=== PATIENT | male | born 1965 | race Two or more races ===

== ENCOUNTER 2020-10-26 22:04 | Emergency (ER) | payer OTHER ==
[~2020-10-26] VITALS: Ht 170.2 cm; Wt 99.8 kg
[2020-10-26 23:25] LABS: Albumin 2.6 g/dL (3.4-5.0); BUN/Creatinine Ratio 9.4; Calcium 8.4 mg/dL (8.5-10.1); Potassium 3.9 mmol/L (3.5-5.1)
[2020-10-26 23:28] LABS: Bilirubin, Total 0.4 mg/dL (0.2-1.0); Total Protein 7.4 g/dL (6.4-8.2)
[2020-10-26 23:37] LABS: Basophils # (auto) 0.1 10 ^3/uL (0-0.2); Basophils % (auto) 0.8 % (0.0-2.0); Eosinophils # (auto) 0.5 10 ^3/uL (0-0.8); Eosinophils % (auto) 4.5 % (0.0-7.0); Hematocrit 34.4 % (41.0-53.0); Hemoglobin 12.2 g/dL (13.5-17.5); Lymphocytes # (auto) 1.7 10 ^3/uL (0.4-5.4); Lymphocytes % (auto) 16.8 % (10.0-50.0); Mean Corpuscular Hgb Conc. 35.5 g/dL (32.0-36.0); Mean Corpuscular Volume 90.1 fL (80.0-100.0); Monocytes % (auto) 9.9 % (0.0-12.0); Nucleated Red Blood Cells % 0.1 %; Red Blood Cells 3.82 10^6/uL (4.5-5.90); Red Cell Distribution Width 13.1 % (11.8-14.3); White Blood Cell 10.3 10^3/uL (4.4-10.8)
[2020-10-27] MEDS ORDERED: diazePAM 5 MG TAB PO ONE (02:00)
[2020-10-27] MEDS ORDERED: ACETAMINOPHEN 325 MG TAB PO ONE (02:00)
[2020-10-27 04:00] VITALS: BP 141/75
== END 2020-10-27 05:53 | disposition left against medical advice (07) ==
LOC: ER 22:04
DX: N17.8 Other acute kidney failure (principal); R51.9 Headache, unspecified; I10 Essential (primary) hypertension; E11.9 Type 2 diabetes mellitus without complications; F17.210 Nicotine dependence, cigarettes, uncomplicated; Z90.49 Acquired absence of other specified parts of digestive tract; Z98.890 Other specified postprocedural states
CPT/HCPCS: 36415; 70450; 80053; 85025; 85049

== ENCOUNTER 2021-11-07 19:07 | Emergency (ER) | payer MEDICAID, OTHER ==
[~2021-11-07] VITALS: Ht 170.2 cm; Wt 83.9 kg
[2021-11-07 20:00] VITALS: BP 149/93
[2021-11-07 21:10] LABS: Basophils # (auto) 0.1 10 ^3/uL (0-0.2); Basophils % (auto) 1.7 % (0.0-2.0); Eosinophils # (auto) 0.1 10 ^3/uL (0-0.8); Hematocrit 30.3 % (41.0-53.0); Hemoglobin 10.4 g/dL (13.5-17.5); Lymphocytes # (auto) 0.7 10 ^3/uL (0.4-5.4); Lymphocytes % (auto) 13.9 % (10.0-50.0); Mean Corpuscular Hemoglobin 32.3 pg (28.0-32.0); Mean Corpuscular Hgb Conc. 34.5 g/dL (32.0-36.0); Mean Corpuscular Volume 93.7 fL (80.0-100.0); Monocytes # (auto) 0.7 10 ^3/uL (0-1.3); Monocytes % (auto) 12.6 % (0.0-12.0); Neutrophils # (auto) 3.7 10 ^3/uL (1.6-8.6); Neutrophils % (auto) 70.8 % (37.0-80.0); Red Blood Cells 3.23 10^6/uL (4.5-5.90); Red Cell Distribution Width 14.2 % (11.8-14.3); White Blood Cell 5.3 10^3/uL (4.4-10.8)
[2021-11-07 21:28] LABS: Albumin 3.7 g/dL (3.4-5.0); Calcium 9.1 mg/dL (8.5-10.1); Potassium 3.9 mmol/L (3.5-5.1)
[2021-11-07 21:32] LABS: BUN/Creatinine Ratio 4.4; Bilirubin, Total 0.4 mg/dL (0.2-1.0); Total Protein 7.8 g/dL (6.4-8.2)
[2021-11-07 23:13] LABS: Basophils # (auto) 0 10 ^3/uL (0-0.2); Basophils % (auto) 0.9 % (0.0-2.0); Eosinophils # (auto) 0 10 ^3/uL (0-0.8); Eosinophils % (auto) 0.9 % (0.0-7.0); Hematocrit 28.3 % (41.0-53.0); Hemoglobin 10.1 g/dL (13.5-17.5); Lymphocytes % (auto) 20.3 % (10.0-50.0); Mean Corpuscular Hemoglobin 33.7 pg (28.0-32.0); Mean Corpuscular Hgb Conc. 35.6 g/dL (32.0-36.0); Mean Corpuscular Volume 94.4 fL (80.0-100.0); Monocytes # (auto) 0.6 10 ^3/uL (0-1.3); Monocytes % (auto) 12.7 % (0.0-12.0); Neutrophils # (auto) 3.1 10 ^3/uL (1.6-8.6); Neutrophils % (auto) 65.2 % (37.0-80.0); Nucleated Red Blood Cells % 0.1 %; Red Cell Distribution Width 14.7 % (11.8-14.3); White Blood Cell 4.7 10^3/uL (4.4-10.8)
[2021-11-07 23:25] LABS: Albumin 3.7 g/dL (3.4-5.0); Anion Gap 9 (5-15); Blood Urea Nitrogen 38 mg/dL (7-18); Calcium 9.4 mg/dL (8.5-10.1); Carbon Dioxide 32 mmol/L (21-32); Chloride 94 mmol/L (98-107); Glucose 97 mg/dL (74-106); Sodium 135 mmol/L (136-145)
[2021-11-07 23:28] LABS: Alanine Aminotransferase 8 U/L (16-61); Aspartate Aminotransferase < 3 U/L (15-37); BUN/Creatinine Ratio 4.6; GFR African American 9 mL/min; GFR Non-African American 7 mL/min
[2021-11-07 23:31] LABS: Alkaline Phosphatase 68 U/L (45-117); Bilirubin, Total 0.4 mg/dL (0.2-1.0); Total Protein 7.4 g/dL (6.4-8.2)
== END 2021-11-08 01:38 | disposition home or self-care (01) ==
LOC: ER 19:07
DX: E11.22 Type 2 diabetes mellitus with diabetic chronic kidney disease (principal); R39.9 Unspecified symptoms and signs involving the genitourinary system; I12.0 Hypertensive chronic kidney disease with stage 5 chronic kidney disease or end stage renal disease; N18.6 End stage renal disease; F17.210 Nicotine dependence, cigarettes, uncomplicated; Z90.49 Acquired absence of other specified parts of digestive tract
CPT/HCPCS: 36415; 71045; 74176; 80053; 85025

== ENCOUNTER 2021-11-25 14:29 | Emergency (ER) | payer MEDICAID ==
[~2021-11-25] VITALS: Ht 167.6 cm; Wt 90.0 kg
[2021-11-25] MEDS ORDERED: cloNIDine HCL 0.1 MG TAB PO ONE (15:00)
[2021-11-25 15:38] LABS: Basophils # (auto) 0.1 10 ^3/uL (0-0.2); Basophils % (auto) 1.1 % (0.0-2.0); Eosinophils # (auto) 0.2 10 ^3/uL (0-0.8); Eosinophils % (auto) 2.4 % (0.0-7.0); Hematocrit 34.6 % (41.0-53.0); Hemoglobin 12.1 g/dL (13.5-17.5); Lymphocytes # (auto) 0.7 10 ^3/uL (0.4-5.4); Lymphocytes % (auto) 7.9 % (10.0-50.0); Mean Corpuscular Hemoglobin 33.1 pg (28.0-32.0); Mean Corpuscular Hgb Conc. 34.9 g/dL (32.0-36.0); Mean Corpuscular Volume 94.9 fL (80.0-100.0); Monocytes # (auto) 0.7 10 ^3/uL (0-1.3); Monocytes % (auto) 7.9 % (0.0-12.0); Neutrophils # (auto) 6.9 10 ^3/uL (1.6-8.6); Neutrophils % (auto) 80.7 % (37.0-80.0); Red Blood Cells 3.65 10^6/uL (4.5-5.90); White Blood Cell 8.6 10^3/uL (4.4-10.8)
[2021-11-25 15:56] LABS: Albumin 4.1 g/dL (3.4-5.0); BUN/Creatinine Ratio 3.7; Calcium 10.3 mg/dL (8.5-10.1); Potassium 4.2 mmol/L (3.5-5.1)
[2021-11-25 15:59] LABS: Bilirubin, Total 0.5 mg/dL (0.2-1.0); Total Protein 7.8 g/dL (6.4-8.2)
[2021-11-25] MEDS ORDERED: ONDANSETRON ODT 4 MG TAB PO ONE (22:45)
[2021-11-25 22:50] VITALS: BP 224/102
== END 2021-11-26 00:01 | disposition home or self-care (01) ==
LOC: ER 14:29
DX: R42 Dizziness and giddiness (principal); R53.1 Weakness; I16.0 Hypertensive urgency; I12.0 Hypertensive chronic kidney disease with stage 5 chronic kidney disease or end stage renal disease; E11.22 Type 2 diabetes mellitus with diabetic chronic kidney disease; N18.6 End stage renal disease; F17.210 Nicotine dependence, cigarettes, uncomplicated; Z99.2 Dependence on renal dialysis; Z90.49 Acquired absence of other specified parts of digestive tract; Z20.822 Contact with and (suspected) exposure to COVID-19
CPT/HCPCS: 36415; 70450; 71046; 80053; 82728; 85025; 86141; 87426; 93005; 99285; Q0162

== ENCOUNTER 2021-12-24 19:12 | Inpatient (IN) | payer MEDICAID ==
[~2021-12-24] VITALS: Ht 175.3 cm; Wt 73.2 kg
[2021-12-24] MEDS ORDERED: cloNIDine HCL 0.1 MG TAB PO ONE (20:15)
[2021-12-24 20:56] LABS: Basophils # (auto) 0.1 10 ^3/uL (0-0.2); Basophils % (auto) 0.8 % (0.0-2.0); Eosinophils # (auto) 0.1 10 ^3/uL (0-0.8); Eosinophils % (auto) 0.9 % (0.0-7.0); Hemoglobin 12.5 g/dL (13.5-17.5); Lymphocytes # (auto) 0.7 10 ^3/uL (0.4-5.4); Mean Corpuscular Hemoglobin 32.6 pg (28.0-32.0); Mean Corpuscular Hgb Conc. 33.9 g/dL (32.0-36.0); Monocytes # (auto) 0.6 10 ^3/uL (0-1.3); Monocytes % (auto) 8.5 % (0.0-12.0); Neutrophils # (auto) 5.3 10 ^3/uL (1.6-8.6); Neutrophils % (auto) 79.8 % (37.0-80.0); Nucleated Red Blood Cells % 0.1 %; Red Blood Cells 3.85 10^6/uL (4.5-5.90); Red Cell Distribution Width 13.7 % (11.8-14.3); White Blood Cell 6.7 10^3/uL (4.4-10.8)
[2021-12-24 21:07] LABS: Albumin 3.8 g/dL (3.4-5.0); Calcium 10.1 mg/dL (8.5-10.1); Potassium 3.7 mmol/L (3.5-5.1)
[2021-12-24 21:11] LABS: BUN/Creatinine Ratio 4.8; Bilirubin, Total 0.6 mg/dL (0.2-1.0); Total Protein 7.2 g/dL (6.4-8.2)
[2021-12-25] VITALS (43 sets, daily range): BP systolic 121–147; BP diastolic 56–71
[2021-12-25 02:35] LABS: Urine Bacteria FEW /hpf (None Seen); Urine Blood Negative /uL (Negative); Urine Specific Gravity 1.005 (1.001-1.035); Urine WBC <1 /hpf (0 - 3)
[2021-12-25] MEDS ORDERED: DEXTROSE (50%) 50ML SYRG IV PRN (04:00)
[2021-12-25] MEDS ORDERED: ONDANSETRON HCL 4 MG/2 ML VIAL IV PRN (04:00)
[2021-12-25] MEDS ORDERED: HYDROcodone-ACET 5/325MG TAB PO PRN (04:00)
[2021-12-25] MEDS ORDERED: MORPHINE SULFATE INJ 2 MG/ml SYRG IV PRN (04:00)
[2021-12-25] MEDS ORDERED: NITROGLYCERIN 0.4 MG SL TAB SL PRN (04:00)
[2021-12-25] MEDS ORDERED: AMLO-489 PO (04:02)
[2021-12-25] MEDS ORDERED: CARV12.544 PO (04:02)
[2021-12-25] MEDS ORDERED: DOXA4TAB6 PO (04:02)
[2021-12-25] MEDS ORDERED: HYDR50TA15 PO (04:02)
[2021-12-25] MEDS: InsuLIN REG 1unit/0.01ml Soln (100units/ml) SC SCH ×4 (06:00→23:36)
[2021-12-25] MEDS: ACCU-CHEK COMFORT CURVE STRIP VI SCH ×4 (06:00→23:36)
[2021-12-25] MEDS: hydrALAZINE HCL 25 MG TAB PO SCH ×3 (07:08→22:50)
[2021-12-25] MEDS: SEVELAMER 800 MG TAB PO SCH ×3 (08:00→17:06)
[2021-12-25] MEDS: CARVEDILOL 12.5 MG TAB PO SCH ×2 (10:00→22:50)
[2021-12-25] MEDS: amLODIPine BESYLATE 5 MG TAB PO SCH (10:00)
[2021-12-25] MEDS: PANTOPRAZOLE 40 MG/10 ML VIAL INJ IV SCH (12:27)
[2021-12-26] VITALS (78 sets, daily range): BP systolic 130–205; BP diastolic 69–105
[2021-12-26] MEDS: hydrALAZINE HCL 20 MG/ML VL IV PRN ×2 (02:04→10:17)
[2021-12-26 03:42] LABS: Basophils # (auto) 0.1 10 ^3/uL (0-0.2); Basophils % (auto) 0.9 % (0.0-2.0); Eosinophils # (auto) 0 10 ^3/uL (0-0.8); Eosinophils % (auto) 0.3 % (0.0-7.0); Hematocrit 36.1 % (41.0-53.0); Hemoglobin 12.5 g/dL (13.5-17.5); Lymphocytes # (auto) 0.9 10 ^3/uL (0.4-5.4); Lymphocytes % (auto) 10.7 % (10.0-50.0); Mean Corpuscular Hemoglobin 33.1 pg (28.0-32.0); Mean Corpuscular Hgb Conc. 34.6 g/dL (32.0-36.0); Mean Corpuscular Volume 95.7 fL (80.0-100.0); Monocytes # (auto) 0.5 10 ^3/uL (0-1.3); Monocytes % (auto) 6.4 % (0.0-12.0); Neutrophils # (auto) 6.9 10 ^3/uL (1.6-8.6); Neutrophils % (auto) 81.7 % (37.0-80.0); Red Blood Cells 3.77 10^6/uL (4.5-5.90); Red Cell Distribution Width 14.4 % (11.8-14.3); White Blood Cell 8.4 10^3/uL (4.4-10.8)
[2021-12-26 04:07] LABS: % Iron Saturation 35.6 % (20-55)
[2021-12-26 04:15] LABS: Potassium 3.8 mmol/L (3.5-5.1)
[2021-12-26 04:24] LABS: Albumin 3.2 g/dL (3.4-5.0); BUN/Creatinine Ratio 5.7; Bilirubin, Total 0.5 mg/dL (0.2-1.0); Calcium 9.2 mg/dL (8.5-10.1); Total Protein 6.4 g/dL (6.4-8.2)
[2021-12-26] MEDS: ACCU-CHEK COMFORT CURVE STRIP VI SCH ×3 (05:35→18:43)
[2021-12-26] MEDS: InsuLIN REG 1unit/0.01ml Soln (100units/ml) SC SCH ×3 (05:35→18:00)
[2021-12-26] MEDS: hydrALAZINE HCL 25 MG TAB PO SCH ×3 (05:42→20:56)
[2021-12-26] MEDS ORDERED: SODIUM CHL 0.9% 1000 ML BAG XX ONE (07:00)
[2021-12-26] MEDS: SEVELAMER 800 MG TAB PO SCH ×3 (08:00→17:19)
[2021-12-26] MEDS: PANTOPRAZOLE 40 MG/10 ML VIAL INJ IV SCH ×2 (09:41→21:11)
[2021-12-26] MEDS: CARVEDILOL 12.5 MG TAB PO SCH ×2 (10:00→20:56)
[2021-12-26] MEDS: amLODIPine BESYLATE 5 MG TAB PO SCH (10:00)
[2021-12-26] MEDS: PIPERACILLIN-TAZOB 2.25GM 50 ML IV SCH ×2 (10:17→21:11)
[2021-12-26 12:30] LABS: Alcohol, Urine < 3.0 mg/dL (0-10); Amphetamine Screen, Urine NEGATIVE (NEGATIVE); Barbiturate Scree,Urine NEGATIVE (NEGATIVE); Benzodiazephine Screen, Urine NEGATIVE (NEGATIVE); Cannabinoid Screen, Urine NEGATIVE (NEGATIVE); Cocaine Screen, Urine NEGATIVE (NEGATIVE); Opiate Scree,Urine NEGATIVE (NEGATIVE); Phencyclidine Screen, Urine NEGATIVE (NEGATIVE)
[2021-12-26] MEDS ORDERED: MORPHINE SULFATE INJ 2 MG/ml SYRG IV PRN (14:30)
[2021-12-26] MEDS: SULFACETAMIDE SOD 10% OPTH(EYE) SOL 15ML EACHEYE SCH ×3 (16:07→21:11)
[2021-12-26] MEDS: ACETAMINOPHEN 325 MG TAB PO PRN (16:08)
[2021-12-27] VITALS (91 sets, daily range): BP systolic 116–176; BP diastolic 58–87
[2021-12-27] MEDS: SULFACETAMIDE SOD 10% OPTH(EYE) SOL 15ML EACHEYE SCH ×9 (00:05→23:40)
[2021-12-27] MEDS: ACCU-CHEK COMFORT CURVE STRIP VI SCH ×5 (00:05→23:38)
[2021-12-27] MEDS: hydrALAZINE HCL 20 MG/ML VL IV PRN (02:05)
[2021-12-27 03:45] LABS: Basophils # (auto) 0.1 10 ^3/uL (0-0.2); Basophils % (auto) 1.1 % (0.0-2.0); Eosinophils # (auto) 0 10 ^3/uL (0-0.8); Eosinophils % (auto) 0.3 % (0.0-7.0); Hematocrit 36.5 % (41.0-53.0); Hemoglobin 12.5 g/dL (13.5-17.5); Lymphocytes # (auto) 1.5 10 ^3/uL (0.4-5.4); Lymphocytes % (auto) 17.3 % (10.0-50.0); Mean Corpuscular Hemoglobin 33.2 pg (28.0-32.0); Mean Corpuscular Hgb Conc. 34.3 g/dL (32.0-36.0); Mean Corpuscular Volume 96.9 fL (80.0-100.0); Monocytes # (auto) 0.9 10 ^3/uL (0-1.3); Monocytes % (auto) 10.4 % (0.0-12.0); Neutrophils # (auto) 6.1 10 ^3/uL (1.6-8.6); Neutrophils % (auto) 70.9 % (37.0-80.0); Red Blood Cells 3.77 10^6/uL (4.5-5.90); Red Cell Distribution Width 14.3 % (11.8-14.3); White Blood Cell 8.6 10^3/uL (4.4-10.8)
[2021-12-27 04:09] LABS: BUN/Creatinine Ratio 5.4; Calcium 9.5 mg/dL (8.5-10.1); Potassium 3.6 mmol/L (3.5-5.1)
[2021-12-27] MEDS: InsuLIN REG 1unit/0.01ml Soln (100units/ml) SC SCH ×5 (05:47→23:38)
[2021-12-27] MEDS: hydrALAZINE HCL 25 MG TAB PO SCH ×3 (05:47→22:03)
[2021-12-27] MEDS: SEVELAMER 800 MG TAB PO SCH ×3 (08:00→18:00)
[2021-12-27] MEDS ORDERED: LORazepam 2MG/ML-1ML VIAL IV PRN (09:45)
[2021-12-27] MEDS: CARVEDILOL 12.5 MG TAB PO SCH ×2 (11:04→22:02)
[2021-12-27] MEDS: PANTOPRAZOLE 40 MG/10 ML VIAL INJ IV SCH ×2 (11:04→22:02)
[2021-12-27] MEDS: PIPERACILLIN-TAZOB 2.25GM 50 ML IV SCH ×2 (11:04→22:02)
[2021-12-27] MEDS: THIAMINE HCL 100 MG TAB PO SCH (11:04)
[2021-12-27] MEDS: amLODIPine BESYLATE 5 MG TAB PO SCH (11:05)
[2021-12-28] VITALS (92 sets, daily range): BP systolic 106–182; BP diastolic 67–136
[2021-12-28] MEDS: hydrALAZINE HCL 20 MG/ML VL IV PRN ×3 (02:05→18:11)
[2021-12-28 03:33] LABS: Basophils # (auto) 0.1 10 ^3/uL (0-0.2); Basophils % (auto) 1.1 % (0.0-2.0); Eosinophils # (auto) 0.1 10 ^3/uL (0-0.8); Eosinophils % (auto) 0.8 % (0.0-7.0); Hematocrit 34.7 % (41.0-53.0); Lymphocytes # (auto) 1.7 10 ^3/uL (0.4-5.4); Lymphocytes % (auto) 20.2 % (10.0-50.0); Mean Corpuscular Hemoglobin 33.9 pg (28.0-32.0); Mean Corpuscular Hgb Conc. 34.6 g/dL (32.0-36.0); Monocytes # (auto) 0.8 10 ^3/uL (0-1.3); Monocytes % (auto) 9.7 % (0.0-12.0); Neutrophils # (auto) 5.8 10 ^3/uL (1.6-8.6); Neutrophils % (auto) 68.2 % (37.0-80.0); Red Blood Cells 3.54 10^6/uL (4.5-5.90); Red Cell Distribution Width 14.2 % (11.8-14.3); White Blood Cell 8.4 10^3/uL (4.4-10.8)
[2021-12-28] MEDS: SULFACETAMIDE SOD 10% OPTH(EYE) SOL 15ML EACHEYE SCH ×7 (03:41→21:47)
[2021-12-28 03:54] LABS: Anion Gap 12 (5-15); BUN/Creatinine Ratio 5.9; Blood Urea Nitrogen 53 mg/dL (7-18); Calcium 9.5 mg/dL (8.5-10.1); Carbon Dioxide 21 mmol/L (21-32); Chloride 108 mmol/L (98-107); GFR African American 8 mL/min; GFR Non-African American 7 mL/min; Glucose 77 mg/dL (74-106); Potassium 3.7 mmol/L (3.5-5.1); Sodium 141 mmol/L (136-145)
[2021-12-28] MEDS: hydrALAZINE HCL 25 MG TAB PO SCH ×3 (05:12→21:48)
[2021-12-28] MEDS: InsuLIN REG 1unit/0.01ml Soln (100units/ml) SC SCH ×3 (05:14→18:00)
[2021-12-28] MEDS: ACCU-CHEK COMFORT CURVE STRIP VI SCH ×3 (05:14→18:11)
[2021-12-28] MEDS ORDERED: SODIUM CHL 0.9% 1000 ML BAG XX ONE (07:00)
[2021-12-28] MEDS: SEVELAMER 800 MG TAB PO SCH ×3 (08:00→18:00)
[2021-12-28] MEDS: CARVEDILOL 12.5 MG TAB PO SCH ×2 (11:41→21:49)
[2021-12-28] MEDS: THIAMINE HCL 100 MG TAB PO SCH (11:41)
[2021-12-28] MEDS: amLODIPine BESYLATE 5 MG TAB PO SCH (11:41)
[2021-12-28] MEDS: PIPERACILLIN-TAZOB 2.25GM 50 ML IV SCH ×2 (11:41→21:49)
[2021-12-28] MEDS: PANTOPRAZOLE 40 MG/10 ML VIAL INJ IV SCH ×2 (11:42→21:49)
[2021-12-28 15:39] LABS: Folate (Folic Acid) 6.11 ng/mL (5.38-24)
[2021-12-29] VITALS (9 sets, daily range): BP systolic 145–174; BP diastolic 80–93
[2021-12-29] MEDS: ACCU-CHEK COMFORT CURVE STRIP VI SCH ×5 (00:14→22:37)
[2021-12-29] MEDS: hydrALAZINE HCL 20 MG/ML VL IV PRN ×2 (00:16→01:57)
[2021-12-29] MEDS: SULFACETAMIDE SOD 10% OPTH(EYE) SOL 15ML EACHEYE SCH ×8 (00:53→22:37)
[2021-12-29] MEDS: hydrALAZINE HCL 25 MG TAB PO SCH ×3 (05:07→22:21)
[2021-12-29] MEDS: InsuLIN REG 1unit/0.01ml Soln (100units/ml) SC SCH ×5 (05:22→22:37)
[2021-12-29] MEDS: SEVELAMER 800 MG TAB PO SCH ×3 (08:33→19:14)
[2021-12-29] MEDS: PANTOPRAZOLE 40 MG/10 ML VIAL INJ IV SCH ×2 (10:13→22:19)
[2021-12-29] MEDS: THIAMINE HCL 100 MG TAB PO SCH (10:14)
[2021-12-29] MEDS: amLODIPine BESYLATE 5 MG TAB PO SCH (10:14)
[2021-12-29] MEDS: PIPERACILLIN-TAZOB 2.25GM 50 ML IV SCH ×2 (10:14→22:20)
[2021-12-29] MEDS: CARVEDILOL 12.5 MG TAB PO SCH ×2 (10:15→22:21)
[2021-12-30] MEDS: SULFACETAMIDE SOD 10% OPTH(EYE) SOL 15ML EACHEYE SCH ×9 (00:07→23:30)
[2021-12-30 05:00] VITALS: BP 161/91
[2021-12-30] MEDS: hydrALAZINE HCL 25 MG TAB PO SCH ×3 (05:19→21:25)
[2021-12-30] MEDS: InsuLIN REG 1unit/0.01ml Soln (100units/ml) SC SCH ×4 (05:26→22:41)
[2021-12-30] MEDS: ACCU-CHEK COMFORT CURVE STRIP VI SCH ×4 (05:26→22:42)
[2021-12-30] MEDS: SEVELAMER 800 MG TAB PO SCH ×3 (08:27→18:15)
[2021-12-30 09:00] VITALS: BP 144/88
[2021-12-30] MEDS: PANTOPRAZOLE 40 MG/10 ML VIAL INJ IV SCH ×2 (10:51→21:24)
[2021-12-30] MEDS: PIPERACILLIN-TAZOB 2.25GM 50 ML IV SCH ×2 (10:51→21:26)
[2021-12-30] MEDS: amLODIPine BESYLATE 5 MG TAB PO SCH (10:52)
[2021-12-30] MEDS: THIAMINE HCL 100 MG TAB PO SCH (10:53)
[2021-12-30] MEDS: CARVEDILOL 12.5 MG TAB PO SCH ×2 (10:53→21:26)
[2021-12-30 13:14] VITALS: BP 175/95
[2021-12-30 14:07] VITALS: BP 166/86
[2021-12-30 17:00] VITALS: BP 132/71
[2021-12-30] MEDS: clonazePAM 0.5 MG TAB PO SCH (21:26)
[2021-12-30 22:00] VITALS: BP 185/94
[2021-12-30] MEDS: hydrALAZINE HCL 20 MG/ML VL IV PRN (22:45)
[2021-12-31] MEDS: SULFACETAMIDE SOD 10% OPTH(EYE) SOL 15ML EACHEYE SCH ×5 (03:30→15:23)
[2021-12-31 05:00] VITALS: BP 166/85
[2021-12-31] MEDS: hydrALAZINE HCL 25 MG TAB PO SCH ×2 (05:06→13:06)
[2021-12-31] MEDS: ACCU-CHEK COMFORT CURVE STRIP VI SCH ×2 (05:07→13:03)
[2021-12-31] MEDS: InsuLIN REG 1unit/0.01ml Soln (100units/ml) SC SCH ×2 (05:07→13:05)
[2021-12-31 06:24] LABS: BUN/Creatinine Ratio 6.2; Basophils # (auto) 0.1 10 ^3/uL (0-0.2); Basophils % (auto) 0.7 % (0.0-2.0); Calcium 10.1 mg/dL (8.5-10.1); Eosinophils # (auto) 0.4 10 ^3/uL (0-0.8); Eosinophils % (auto) 4.5 % (0.0-7.0); Hematocrit 33.1 % (41.0-53.0); Hemoglobin 11.7 g/dL (13.5-17.5); Lymphocytes # (auto) 1.5 10 ^3/uL (0.4-5.4); Lymphocytes % (auto) 18.5 % (10.0-50.0); Mean Corpuscular Hemoglobin 33.7 pg (28.0-32.0); Mean Corpuscular Hgb Conc. 35.2 g/dL (32.0-36.0); Mean Corpuscular Volume 95.6 fL (80.0-100.0); Monocytes # (auto) 0.7 10 ^3/uL (0-1.3); Monocytes % (auto) 8.9 % (0.0-12.0); Neutrophils # (auto) 5.4 10 ^3/uL (1.6-8.6); Neutrophils % (auto) 67.4 % (37.0-80.0); Nucleated Red Blood Cells % 0.1 %; Red Blood Cells 3.46 10^6/uL (4.5-5.90); Red Cell Distribution Width 13.9 % (11.8-14.3)
[2021-12-31] MEDS ORDERED: SODIUM CHL 0.9% 1000 ML BAG XX ONE (07:00)
[2021-12-31 09:00] VITALS: BP 163/96
[2021-12-31] MEDS: SEVELAMER 800 MG TAB PO SCH ×2 (09:21→13:03)
[2021-12-31] MEDS: clonazePAM 0.5 MG TAB PO SCH (10:00)
[2021-12-31] MEDS: amLODIPine BESYLATE 5 MG TAB PO SCH (10:00)
[2021-12-31] MEDS: CARVEDILOL 12.5 MG TAB PO SCH (10:00)
[2021-12-31] MEDS: PANTOPRAZOLE 40 MG/10 ML VIAL INJ IV SCH (10:55)
[2021-12-31] MEDS: THIAMINE HCL 100 MG TAB PO SCH (10:55)
[2021-12-31] MEDS: PIPERACILLIN-TAZOB 2.25GM 50 ML IV SCH (10:55)
[2021-12-31] MEDS: ACETAMINOPHEN 325 MG TAB PO PRN (10:56)
[2021-12-31 13:00] VITALS: BP 125/75
[2021-12-31] MEDS ORDERED: PANT40TA2 PO (16:11)
[2021-12-31] MEDS ORDERED: AMOX500T86 PO (16:11)
[2021-12-31] MEDS ORDERED: SEVE800T PO (16:11)
[2021-12-31] MEDS ORDERED: CLON0.1T PO (16:11)
[2021-12-31 17:24] VITALS: BP 125/75
[2021-12-31 17:26] VITALS: BP 110/72
== END 2021-12-31 18:20 | disposition home or self-care (01) | DRG 52 ==
LOC: ER 19:12 → OVERFLOW 12-25 03:50 → ICU WEST 12-25 08:58 → TELE-EAST 12-29 01:02
PROVIDERS: ADMIT Nurse Practitioner; ATTEND Internal Medicine
PROC: 5A1D70Z Performance of Urinary Filtration, Intermittent, Less than 6 Hours Per Day (ICD-10-PCS; principal; 2021-12-26)
PROC: 5A1D70Z Performance of Urinary Filtration, Intermittent, Less than 6 Hours Per Day (ICD-10-PCS; 2021-12-28)
PROC: 5A1D70Z Performance of Urinary Filtration, Intermittent, Less than 6 Hours Per Day (ICD-10-PCS; 2021-12-31)
DX: I67.4 Hypertensive encephalopathy (principal); F05 Delirium due to known physiological condition; N17.9 Acute kidney failure, unspecified; N18.6 End stage renal disease; I12.0 Hypertensive chronic kidney disease with stage 5 chronic kidney disease or end stage renal disease; D63.1 Anemia in chronic kidney disease; E83.39 Other disorders of phosphorus metabolism; E11.22 Type 2 diabetes mellitus with diabetic chronic kidney disease; R79.89 Other specified abnormal findings of blood chemistry; K59.00 Constipation, unspecified; Z20.822 Contact with and (suspected) exposure to COVID-19; Z99.2 Dependence on renal dialysis; I16.1 Hypertensive emergency; K52.9 Noninfective gastroenteritis and colitis, unspecified; K29.70 Gastritis, unspecified, without bleeding; G89.29 Other chronic pain; M54.50 Low back pain, unspecified; F17.210 Nicotine dependence, cigarettes, uncomplicated; Z83.3 Family history of diabetes mellitus; Z82.49 Family history of ischemic heart disease and other diseases of the circulatory system; Z85.528 Personal history of other malignant neoplasm of kidney; Z85.828 Personal history of other malignant neoplasm of skin; Z90.49 Acquired absence of other specified parts of digestive tract; Z91.14 Patient's other noncompliance with medication regimen
CPT/HCPCS: 36415; 70450; 71045; 74176; 80048; 80053; 80307; 81001; 82140; 82607; 82728; 82746; 82962; 83540; 83550; 83605; 83690; 83735; 84443; 84484; 85025; 87081; 90935; 92507; 92610; 93005; 95819; 97116; 97163; 97530; C9113; G0378; J1642; J1815; J2543

== ENCOUNTER 2023-03-14 03:59 | Inpatient (IN) | payer MEDICARE, MEDICAID ==
[~2023-03-14] VITALS: Ht 170.2 cm; Wt 81.4 kg
[2023-03-14] VITALS (48 sets, daily range): BP systolic 116–184; BP diastolic 61–113; PULSE 73–101; RESP 12–38; TEMP 98.6–99.9; O2SAT 82–100
[~2023-03-14 03:59] MED LIST: AMLO1TAB22 PO; AMOX500T86 PO; CARV12.544 PO; CLON0.1T PO; DOXA4TAB83 PO; HYDR-4297 PO; PANT40TA2 PO; SEVE800T PO
[2023-03-14 04:33] LABS: Basophils # (auto) 0.2 10 ^3/uL (0-0.2); Basophils % (auto) 1.2 % (0.0-2.0); Eosinophils # (auto) 0.7 10 ^3/uL (0-0.8); Eosinophils % (auto) 5.4 % (0.0-7.0); Hematocrit 38.8 % (41.0-53.0); Hemoglobin 13.1 g/dL (13.5-17.5); Lymphocytes # (auto) 0.7 10 ^3/uL (0.4-5.4); Lymphocytes % (auto) 5.4 % (10.0-50.0); Mean Corpuscular Hemoglobin 33.3 pg (28.0-32.0); Mean Corpuscular Hgb Conc. 33.6 g/dL (32.0-36.0); Monocytes # (auto) 0.6 10 ^3/uL (0-1.3); Monocytes % (auto) 4.5 % (0.0-12.0); Neutrophils % (auto) 83.5 % (37.0-80.0); Nucleated Red Blood Cells % 0.2 %; Red Blood Cells 3.92 10^6/uL (4.5-5.90); Red Cell Distribution Width 14.6 % (11.8-14.3); White Blood Cell 13.2 10^3/uL (4.4-10.8)
[2023-03-14] MEDS ORDERED: ETOMIDATE (2MG/ML) 20ML VIAL IV ONE ×2 (04:40→05:15)
[2023-03-14] MEDS ORDERED: PROPOFOL 100 ML IV ONE (04:40)
[2023-03-14] MEDS ORDERED: ROCURONIUM 10MG/ML 10ML VIAL IV ONE ×2 (04:40→05:00)
[2023-03-14 04:48] LABS: INR 1.11 (0.9-1.15); Prothrombin Time 11.6 sec (9.3-11.8)
[2023-03-14 04:49] LABS: Alkaline Phosphatase 101 U/L (46-116); Anion Gap 13 (5-15); Aspartate Aminotransferase < 8 U/L (13-40); Bilirubin, Total 0.6 mg/dL (0.2-1.0); Blood Urea Nitrogen 54 mg/dL (9-23); Calcium 10.4 mg/dL (8.7-10.4); Carbon Dioxide 24 mmol/L (20-30); Chloride 97 mmol/L (98-107); Glucose 100 mg/dL (74-106); Magnesium 2.4 mg/dL (1.6-2.6); Sodium 134 mmol/L (136-145); Total Protein 8.3 g/dL (5.7-8.2)
[2023-03-14] MEDS: PROPOFOL 100 ML IV SCH ×5 (05:00→20:29)
[2023-03-14] MEDS ORDERED: PROPOFOL 10 MG/ML 20 ML IV ONE (05:00)
[2023-03-14 05:09] LABS: Alanine Aminotransferase < 9 U/L (7-40)
[2023-03-14] MEDS ORDERED: NITROGLYCERIN 50MG/250ML 250 ML IV ONE (05:10)
[2023-03-14 05:16] LABS: BUN/Creatinine Ratio 5.1 (10.0-20.0)
[2023-03-14] MEDS: NITROGLYCERIN 50MG/250ML 250 ML IV SCH ×2 (05:18→12:21)
[2023-03-14] MEDS ORDERED: FUROSEMIDE 100 MG/10ML VIAL IV ONE (05:45)
[2023-03-14 06:26] LABS: Base Excess -4.3 mmol/L (-2.0-2.0)
[2023-03-14] MEDS ORDERED: MIDAZOLAM HCL 5 MG/ML-1ML VIAL IV ONE (07:15)
[2023-03-14] MEDS ORDERED: fentaNYL CITRATE 100 MCG/2 ML VL IV ONE (07:15)
[2023-03-14] MEDS: MIDAZOLAM DRIP 50 mg/50mL 50 ML IV SCH ×4 (07:35→18:39)
[2023-03-14] MEDS ORDERED: SODIUM CHL 0.9% 1000 ML BAG XX ONE (07:45)
[2023-03-14] MEDS ORDERED: DOCUSATE SOD 100 MG CAP PO PRN (09:45)
[2023-03-14] MEDS ORDERED: ONDANSETRON HCL 4 MG/2 ML VIAL IV PRN (09:45)
[2023-03-14] MEDS ORDERED: DEXTROSE (50%) 50ML SYRG IV PRN (10:00)
[2023-03-14] MEDS: PIPERACILLIN-TAZOB 3.375GM 100 ML IV SCH ×2 (11:06→22:00)
[2023-03-14] MEDS: PANTOPRAZOLE 40 MG/10 ML VIAL INJ IV SCH (11:06)
[2023-03-14] MEDS: HEPARIN SODIUM (PORCINE) 5000 UNITS/ML 1ML VIAL SC SCH ×2 (11:07→21:46)
[2023-03-14] MEDS: InsuLIN REG 1unit/0.01ml Soln (100units/ml) SC SCH ×3 (12:00→23:31)
[2023-03-14] MEDS ORDERED: ACCU-CHEK COMFORT CURVE STRIP VI SCH (12:00)
[2023-03-14 13:38] LABS: Base Excess -0.5 mmol/L (-2.0-2.0)
[2023-03-14] MEDS: ACCU-CHEK COMFORT CURVE STRIP VI SCH ×3 (14:11→23:31)
[2023-03-14] MEDS: METOPROLOL TARTRATE 1MG/1ML-5ML VIAL IV SCH ×3 (14:34→23:31)
[2023-03-14] MEDS: hydrALAZINE HCL 20 MG/ML VL IV PRN (14:34)
[2023-03-14] MEDS ORDERED: fentaNYL Drip 2500mCg/250mlNS 250 ML IV ONE (15:35)
[2023-03-14] MEDS: fentaNYL Drip 2500mCg/250mlNS 250 ML IV SCH (17:00)
[2023-03-14] MEDS: DexmedeTOMIDine 200 MCG in D5W 5% 48 ML IV SCH (19:10)
[2023-03-15] VITALS (109 sets, daily range): BP systolic 131–195; BP diastolic 57–97; PULSE 65–91; RESP 10–29; TEMP 97.7–100.2; O2SAT 92–100
[2023-03-15] MEDS: PROPOFOL 100 ML IV SCH ×2 (01:22→06:43)
[2023-03-15] MEDS: ACCU-CHEK COMFORT CURVE STRIP VI SCH ×7 (02:00→23:36)
[2023-03-15] MEDS: MIDAZOLAM DRIP 50 mg/50mL 50 ML IV SCH ×5 (03:15→23:15)
[2023-03-15 05:12] LABS: Basophils # (auto) 0 10 ^3/uL (0-0.2); Eosinophils # (auto) 0.1 10 ^3/uL (0-0.8); Eosinophils % (auto) 0.9 % (0.0-7.0); Lymphocytes # (auto) 0.4 10 ^3/uL (0.4-5.4); Monocytes # (auto) 0.4 10 ^3/uL (0-1.3)
[2023-03-15 05:14] LABS: Basophils % (auto) 0.5 % (0.0-2.0); Hematocrit 31.5 % (41.0-53.0); Lymphocytes % (auto) 5.7 % (10.0-50.0); Mean Corpuscular Hemoglobin 35.1 pg (28.0-32.0); Mean Corpuscular Hgb Conc. 34.9 g/dL (32.0-36.0); Mean Corpuscular Volume 100.6 fL (80.0-100.0); Monocytes % (auto) 5.8 % (0.0-12.0); Neutrophils # (auto) 5.9 10 ^3/uL (1.6-8.6); Neutrophils % (auto) 87.1 % (37.0-80.0); Red Blood Cells 3.13 10^6/uL (4.5-5.90); Red Cell Distribution Width 14.9 % (11.8-14.3); White Blood Cell 6.8 10^3/uL (4.4-10.8)
[2023-03-15 05:37] LABS: Alanine Aminotransferase 110 U/L (7-40); Alkaline Phosphatase 67 U/L (46-116); Anion Gap 11 (5-15); BUN/Creatinine Ratio 5.6 (10.0-20.0); Blood Urea Nitrogen 50 mg/dL (9-23); Calcium 9.9 mg/dL (8.7-10.4); Carbon Dioxide 26 mmol/L (20-30); Chloride 99 mmol/L (98-107); Glucose 71 mg/dL (74-106); Potassium 4.8 mmol/L (3.5-5.1); Sodium 136 mmol/L (136-145)
[2023-03-15 05:38] LABS: Albumin 3.9 g/dL (3.2-4.8); Aspartate Aminotransferase 122 U/L (13-40); Bilirubin, Total 0.5 mg/dL (0.2-1.0); Total Protein 6.5 g/dL (5.7-8.2)
[2023-03-15] MEDS: InsuLIN REG 1unit/0.01ml Soln (100units/ml) SC SCH ×4 (06:00→23:36)
[2023-03-15] MEDS: METOPROLOL TARTRATE 1MG/1ML-5ML VIAL IV SCH ×3 (06:06→18:00)
[2023-03-15] MEDS: DexmedeTOMIDine 200 MCG in D5W 5% 48 ML IV SCH ×2 (06:57→16:29)
[2023-03-15] MEDS: PIPERACILLIN-TAZOB 3.375GM 100 ML IV SCH (07:28)
[2023-03-15] MEDS: PANTOPRAZOLE 40 MG/10 ML VIAL INJ IV SCH (07:28)
[2023-03-15] MEDS: hydrALAZINE HCL 20 MG/ML VL IV PRN ×3 (07:29→20:03)
[2023-03-15] MEDS: HEPARIN SODIUM (PORCINE) 5000 UNITS/ML 1ML VIAL SC SCH ×2 (07:45→21:44)
[2023-03-15 09:11] LABS: Base Excess 1.5 mmol/L (-2.0-2.0)
[2023-03-15] MEDS ORDERED: Jevity 1.2 Cal/Fiber 1 Liter GT SCH (10:30)
[2023-03-15] MEDS ORDERED: FUROSEMIDE 40 MG/4 ML VIAL IV ONE (11:00)
[2023-03-15] MEDS: fentaNYL Drip 2500mCg/250mlNS 250 ML IV SCH (11:17)
[2023-03-15] MEDS ORDERED: hydrALAZINE HCL 20 MG/ML VL IV ONE (13:30)
[2023-03-15 13:33] LABS: Base Excess 1.9 mmol/L (-2.0-2.0)
[2023-03-15] MEDS ORDERED: PIPERACILLIN-TAZOB 2.25GM 50 ML IV SCH (13:45)
[2023-03-15] MEDS ORDERED: LABETALOL HCL 5 MG/ML 4ML SYRINGE IV PRN (13:45)
[2023-03-15] MEDS: LABETALOL INJECTION 250 MG in SODIUM CHL 0.9% 200 ML IV SCH ×3 (16:30→22:00)
[2023-03-15] MEDS: PIPERACILLIN-TAZOB 2.25GM 50 ML IV SCH (16:42)
[2023-03-15] MEDS ORDERED: IBUPROFEN 400 MG TAB PO PRN ×2 (20:45→21:00)
[2023-03-16] VITALS (70 sets, daily range): BP systolic 148–207; BP diastolic 70–105; PULSE 65–76; RESP 11–17; TEMP 97.9–99.1; O2SAT 91–100
[2023-03-16] MEDS: MIDAZOLAM DRIP 50 mg/50mL 50 ML IV SCH ×3 (04:15→08:52)
[2023-03-16 04:57] LABS: Basophils # (auto) 0 10 ^3/uL (0-0.2); Eosinophils # (auto) 0.1 10 ^3/uL (0-0.8); Lymphocytes # (auto) 0.3 10 ^3/uL (0.4-5.4); Lymphocytes % (auto) 4.7 % (10.0-50.0); Monocytes # (auto) 0.5 10 ^3/uL (0-1.3)
[2023-03-16 04:59] LABS: Basophils % (auto) 0.4 % (0.0-2.0); Eosinophils % (auto) 0.9 % (0.0-7.0); Hemoglobin 10.2 g/dL (13.5-17.5); Mean Corpuscular Hemoglobin 34.3 pg (28.0-32.0); Mean Corpuscular Hgb Conc. 34.1 g/dL (32.0-36.0); Mean Corpuscular Volume 100.4 fL (80.0-100.0); Monocytes % (auto) 7.3 % (0.0-12.0); Neutrophils # (auto) 6.2 10 ^3/uL (1.6-8.6); Neutrophils % (auto) 86.7 % (37.0-80.0); Red Blood Cells 2.99 10^6/uL (4.5-5.90); Red Cell Distribution Width 15.1 % (11.8-14.3); White Blood Cell 7.2 10^3/uL (4.4-10.8)
[2023-03-16] MEDS: LABETALOL INJECTION 250 MG in SODIUM CHL 0.9% 200 ML IV SCH ×3 (05:00→08:52)
[2023-03-16] MEDS: InsuLIN REG 1unit/0.01ml Soln (100units/ml) SC SCH ×4 (05:47→23:45)
[2023-03-16] MEDS: ACCU-CHEK COMFORT CURVE STRIP VI SCH ×5 (05:47→21:56)
[2023-03-16 05:51] LABS: Chloride 98 mmol/L (98-107); Potassium 4.9 mmol/L (3.5-5.1); Sodium 136 mmol/L (136-145)
[2023-03-16 05:52] LABS: Anion Gap 13 (5-15); Calcium 9.8 mg/dL (8.7-10.4); Carbon Dioxide 25 mmol/L (20-30)
[2023-03-16 05:57] LABS: BUN/Creatinine Ratio 7.3 (10.0-20.0); Glucose 87 mg/dL (74-106)
[2023-03-16] MEDS: METOPROLOL TARTRATE 1MG/1ML-5ML VIAL IV SCH ×5 (06:00→23:43)
[2023-03-16 06:15] LABS: Blood Urea Nitrogen 73 mg/dL (9-23)
[2023-03-16] MEDS ORDERED: SODIUM CHL 0.9% 1000 ML BAG XX ONE (07:00)
[2023-03-16] MEDS: fentaNYL Drip 2500mCg/250mlNS 250 ML IV SCH (07:05)
[2023-03-16] MEDS: DexmedeTOMIDine 200 MCG in D5W 5% 48 ML IV SCH ×2 (07:51→08:53)
[2023-03-16] MEDS: HEPARIN SODIUM (PORCINE) 5000 UNITS/ML 1ML VIAL SC SCH ×2 (09:24→21:44)
[2023-03-16] MEDS: PANTOPRAZOLE 40 MG/10 ML VIAL INJ IV SCH (09:24)
[2023-03-16] MEDS: PIPERACILLIN-TAZOB 2.25GM 50 ML IV SCH ×2 (09:25→16:55)
[2023-03-16] MEDS: hydrALAZINE HCL 20 MG/ML VL IV PRN ×3 (10:13→20:32)
[2023-03-16] MEDS ORDERED: NIFE1TAB30 PO (15:11)
[2023-03-16] MEDS ORDERED: FERR1TAB17 PO (15:11)
[2023-03-16] MEDS ORDERED: DULA0.5I SC (15:11)
[2023-03-16] MEDS ORDERED: CLON0.1T PO (15:11)
[2023-03-16] MEDS ORDERED: LUBI24CA6 PO (15:11)
[2023-03-16] MEDS ORDERED: SITA50TA PO (15:11)
[2023-03-16] MEDS ORDERED: DOXA4TAB83 PO (15:11)
[2023-03-16] MEDS ORDERED: FURO1TAB32 PO (15:11)
[2023-03-16] MEDS ORDERED: NIFE90TA75 PO (15:11)
[2023-03-16] MEDS ORDERED: FUROSEMIDE 40 MG/4 ML VIAL IV ONE (16:15)
[2023-03-16] MEDS: LABETALOL HCL 5 MG/ML 4ML SYRINGE IV PRN (18:45)
[2023-03-17] VITALS (14 sets, daily range): BP systolic 146–190; BP diastolic 77–93; PULSE 70–82; RESP 10–19; TEMP 97.9–98.3; O2SAT 89–99
[2023-03-17] MEDS: hydrALAZINE HCL 20 MG/ML VL IV PRN ×3 (01:01→09:11)
[2023-03-17] MEDS: ACCU-CHEK COMFORT CURVE STRIP VI SCH ×4 (02:19→18:23)
[2023-03-17] MEDS: LABETALOL HCL 5 MG/ML 4ML SYRINGE IV PRN (03:32)
[2023-03-17] MEDS: InsuLIN REG 1unit/0.01ml Soln (100units/ml) SC SCH ×3 (05:35→18:00)
[2023-03-17] MEDS: METOPROLOL TARTRATE 1MG/1ML-5ML VIAL IV SCH ×3 (05:57→18:23)
[2023-03-17 06:17] LABS: Basophils # (auto) 0 10 ^3/uL (0-0.2); Basophils % (auto) 0.6 % (0.0-2.0); Eosinophils # (auto) 0.2 10 ^3/uL (0-0.8); Eosinophils % (auto) 2.3 % (0.0-7.0); Hematocrit 30.3 % (41.0-53.0); Hemoglobin 10.2 g/dL (13.5-17.5); Lymphocytes # (auto) 0.3 10 ^3/uL (0.4-5.4); Mean Corpuscular Hemoglobin 33.7 pg (28.0-32.0); Mean Corpuscular Hgb Conc. 33.6 g/dL (32.0-36.0); Mean Corpuscular Volume 100.3 fL (80.0-100.0); Monocytes # (auto) 0.6 10 ^3/uL (0-1.3); Monocytes % (auto) 7.9 % (0.0-12.0); Neutrophils # (auto) 6.7 10 ^3/uL (1.6-8.6); Neutrophils % (auto) 85.2 % (37.0-80.0); Red Blood Cells 3.02 10^6/uL (4.5-5.90); Red Cell Distribution Width 15.3 % (11.8-14.3); White Blood Cell 7.8 10^3/uL (4.4-10.8)
[2023-03-17 06:36] LABS: Chloride 99 mmol/L (98-107); Potassium 4.6 mmol/L (3.5-5.1); Sodium 137 mmol/L (136-145)
[2023-03-17 06:37] LABS: Anion Gap 12 (5-15); Calcium 9.9 mg/dL (8.7-10.4); Carbon Dioxide 26 mmol/L (20-30)
[2023-03-17] MEDS: PIPERACILLIN-TAZOB 2.25GM 50 ML IV SCH ×2 (06:41→18:33)
[2023-03-17 06:42] LABS: BUN/Creatinine Ratio 6.1 (10.0-20.0); Glucose 61 mg/dL (74-106)
[2023-03-17 06:44] LABS: Blood Urea Nitrogen 53 mg/dL (9-23)
[2023-03-17 09:17] LABS: Hepatitis B Surface Antigen Negative (Negative)
[2023-03-17] MEDS: PANTOPRAZOLE 40 MG/10 ML VIAL INJ IV SCH (09:34)
[2023-03-17] MEDS: HEPARIN SODIUM (PORCINE) 5000 UNITS/ML 1ML VIAL SC SCH ×2 (09:34→21:37)
[2023-03-17] MEDS: NIFEdipine ER 30 MG TAB PO SCH (09:35)
[2023-03-17] MEDS: FUROSEMIDE 40 MG/4 ML VIAL IV SCH (09:36)
[2023-03-17 09:38] LABS: Hepatitis A Ab IgM Negative
[2023-03-17 09:39] LABS: Hepatitis B Core IgM Negative
[2023-03-17 11:21] LABS: Hepatitis C Antibody Positive (Negative)
[2023-03-17] MEDS: LOSARTAN POTASSIUM 50 MG TAB PO SCH (16:28)
[2023-03-17] MEDS: cloNIDine HCL 0.1 MG TAB PO SCH (21:27)
[2023-03-18] VITALS (12 sets, daily range): BP systolic 127–156; BP diastolic 65–76; PULSE 63–74; RESP 11–20; TEMP 97.7–99.5; O2SAT 95–100
[2023-03-18] MEDS: METOPROLOL TARTRATE 1MG/1ML-5ML VIAL IV SCH ×4 (00:20→18:37)
[2023-03-18 05:01] LABS: Basophils # (auto) 0 10 ^3/uL (0-0.2); Eosinophils # (auto) 0.3 10 ^3/uL (0-0.8); Lymphocytes # (auto) 0.4 10 ^3/uL (0.4-5.4); Neutrophils # (auto) 4.7 10 ^3/uL (1.6-8.6); White Blood Cell 6.1 10^3/uL (4.4-10.8)
[2023-03-18 05:03] LABS: Basophils % (auto) 0.8 % (0.0-2.0); Eosinophils % (auto) 5.3 % (0.0-7.0); Hematocrit 30.4 % (41.0-53.0); Hemoglobin 10.5 g/dL (13.5-17.5); Lymphocytes % (auto) 6.4 % (10.0-50.0); Mean Corpuscular Hemoglobin 34.4 pg (28.0-32.0); Mean Corpuscular Hgb Conc. 34.4 g/dL (32.0-36.0); Mean Corpuscular Volume 99.9 fL (80.0-100.0); Monocytes # (auto) 0.7 10 ^3/uL (0-1.3); Monocytes % (auto) 11.5 % (0.0-12.0); Nucleated Red Blood Cells % 0.1 %; Red Blood Cells 3.04 10^6/uL (4.5-5.90); Red Cell Distribution Width 15.3 % (11.8-14.3)
[2023-03-18 05:10] LABS: Anion Gap 12 (5-15); Carbon Dioxide 26 mmol/L (20-30); Chloride 98 mmol/L (98-107); Potassium 4.4 mmol/L (3.5-5.1); Sodium 136 mmol/L (136-145)
[2023-03-18 05:11] LABS: Calcium 9.8 mg/dL (8.5-10.1)
[2023-03-18 05:16] LABS: BUN/Creatinine Ratio 6.9 (10.0-20.0); Glucose 97 mg/dL (74-106)
[2023-03-18 05:17] LABS: Blood Urea Nitrogen 69 mg/dL (9-23)
[2023-03-18] MEDS: ACCU-CHEK COMFORT CURVE STRIP VI SCH ×5 (06:00→22:25)
[2023-03-18] MEDS: InsuLIN REG 1unit/0.01ml Soln (100units/ml) SC SCH ×5 (06:00→22:26)
[2023-03-18] MEDS ORDERED: SODIUM CHL 0.9% 1000 ML BAG XX ONE (07:00)
[2023-03-18] MEDS: FUROSEMIDE 40 MG/4 ML VIAL IV SCH (09:24)
[2023-03-18] MEDS: PANTOPRAZOLE 40 MG/10 ML VIAL INJ IV SCH (09:24)
[2023-03-18] MEDS: LOSARTAN POTASSIUM 50 MG TAB PO SCH (09:25)
[2023-03-18] MEDS: NIFEdipine ER 30 MG TAB PO SCH (09:26)
[2023-03-18] MEDS: HEPARIN SODIUM (PORCINE) 5000 UNITS/ML 1ML VIAL SC SCH ×2 (09:27→22:25)
[2023-03-18] MEDS: cloNIDine HCL 0.1 MG TAB PO SCH ×2 (09:47→22:22)
[2023-03-18] MEDS: PIPERACILLIN-TAZOB 2.25GM 50 ML IV SCH ×2 (09:47→19:59)
[2023-03-19] VITALS (8 sets, daily range): BP systolic 155–187; BP diastolic 86–91; PULSE 68–74; RESP 16–21; TEMP 36.5; O2SAT 96–100
[2023-03-19] MEDS: METOPROLOL TARTRATE 1MG/1ML-5ML VIAL IV SCH ×3 (00:28→12:11)
[2023-03-19 06:08] LABS: Basophils # (auto) 0.1 10 ^3/uL (0-0.2); Eosinophils # (auto) 0.3 10 ^3/uL (0-0.8); Eosinophils % (auto) 5.3 % (0.0-7.0); Lymphocytes # (auto) 0.4 10 ^3/uL (0.4-5.4); Monocytes # (auto) 0.6 10 ^3/uL (0-1.3); Neutrophils # (auto) 4.6 10 ^3/uL (1.6-8.6); Red Cell Distribution Width 14.6 % (11.8-14.3)
[2023-03-19 06:12] LABS: Basophils % (auto) 0.8 % (0.0-2.0); Hematocrit 29.5 % (41.0-53.0); Hemoglobin 10.4 g/dL (13.5-17.5); Lymphocytes % (auto) 6.7 % (10.0-50.0); Mean Corpuscular Hemoglobin 34.6 pg (28.0-32.0); Mean Corpuscular Hgb Conc. 35.2 g/dL (32.0-36.0); Mean Corpuscular Volume 98.3 fL (80.0-100.0); Monocytes % (auto) 10.7 % (0.0-12.0); Neutrophils % (auto) 76.5 % (37.0-80.0)
[2023-03-19 06:24] LABS: Anion Gap 10 (5-15); Carbon Dioxide 29 mmol/L (20-30); Chloride 98 mmol/L (98-107); Potassium 4.4 mmol/L (3.5-5.1); Sodium 137 mmol/L (136-145)
[2023-03-19 06:25] LABS: Calcium 9.8 mg/dL (8.5-10.1)
[2023-03-19] MEDS: PIPERACILLIN-TAZOB 2.25GM 50 ML IV SCH (06:29)
[2023-03-19] MEDS: ACCU-CHEK COMFORT CURVE STRIP VI SCH ×2 (06:29→11:17)
[2023-03-19 06:30] LABS: BUN/Creatinine Ratio 6.5 (10.0-20.0); Glucose 111 mg/dL (74-106)
[2023-03-19] MEDS: InsuLIN REG 1unit/0.01ml Soln (100units/ml) SC SCH ×2 (06:30→11:18)
[2023-03-19 06:32] LABS: Blood Urea Nitrogen 54 mg/dL (9-23)
[2023-03-19] MEDS: FUROSEMIDE 40 MG/4 ML VIAL IV SCH (09:32)
[2023-03-19] MEDS: NIFEdipine ER 30 MG TAB PO SCH (09:33)
[2023-03-19] MEDS: PANTOPRAZOLE 40 MG/10 ML VIAL INJ IV SCH (09:33)
[2023-03-19] MEDS: LOSARTAN POTASSIUM 50 MG TAB PO SCH (09:34)
[2023-03-19] MEDS: cloNIDine HCL 0.1 MG TAB PO SCH (09:34)
[2023-03-19] MEDS: HEPARIN SODIUM (PORCINE) 5000 UNITS/ML 1ML VIAL SC SCH (09:39)
[2023-03-19] MEDS ORDERED: AMOX500T86 PO (11:53)
[2023-03-19] MEDS: hydrALAZINE HCL 20 MG/ML VL IV PRN (12:56)
[2023-03-19] MEDS ORDERED: MORPHINE SULFATE INJ 2 MG/ml SYRG IV ONE (14:00)
== END 2023-03-19 15:45 | disposition home or self-care (01) | DRG 208 ==
LOC: EDBD 03:59 → EDUNIT# 03:59 → ER 03:59 → TELE 09:37 → DOU IN ICU 12:10 → ICU CENTRL 12:36 → DOU IN ICU 03-17 04:10 → TELE-CENTR 03-18 15:13
PROVIDERS: ADMIT Nurse Practitioner Family; ATTEND Internal Medicine Pulmonary Disease
PROC: 5A1945Z Respiratory Ventilation, 24-96 Consecutive Hours (ICD-10-PCS; principal; 2023-03-14)
PROC: 0BH17EZ Insertion of Endotracheal Airway into Trachea, Via Natural or Artificial Opening (ICD-10-PCS; 2023-03-14)
PROC: 5A1D70Z Performance of Urinary Filtration, Intermittent, Less than 6 Hours Per Day (ICD-10-PCS; 2023-03-14)
PROC: 05HN33Z Insertion of Infusion Device into Left Internal Jugular Vein, Percutaneous Approach (ICD-10-PCS; 2023-03-14)
PROC: 5A1D70Z Performance of Urinary Filtration, Intermittent, Less than 6 Hours Per Day (ICD-10-PCS; 2023-03-16)
PROC: 5A1D70Z Performance of Urinary Filtration, Intermittent, Less than 6 Hours Per Day (ICD-10-PCS; 2023-03-18)
DX: J96.01 Acute respiratory failure with hypoxia (principal); J15.69 Pneumonia due to other Gram-negative bacteria; N18.6 End stage renal disease; J15.9 Unspecified bacterial pneumonia; E87.1 Hypo-osmolality and hyponatremia; N25.81 Secondary hyperparathyroidism of renal origin; I16.1 Hypertensive emergency; I13.2 Hypertensive heart and chronic kidney disease with heart failure and with stage 5 chronic kidney disease, or end stage renal disease; E87.29 Other acidosis; J96.02 Acute respiratory failure with hypercapnia; N40.0 Benign prostatic hyperplasia without lower urinary tract symptoms; I50.9 Heart failure, unspecified; E83.39 Other disorders of phosphorus metabolism; E11.65 Type 2 diabetes mellitus with hyperglycemia; D72.829 Elevated white blood cell count, unspecified; D63.1 Anemia in chronic kidney disease; F17.210 Nicotine dependence, cigarettes, uncomplicated; E11.22 Type 2 diabetes mellitus with diabetic chronic kidney disease; Z99.2 Dependence on renal dialysis; Z90.49 Acquired absence of other specified parts of digestive tract; Z80.9 Family history of malignant neoplasm, unspecified; Z82.49 Family history of ischemic heart disease and other diseases of the circulatory system
CPT/HCPCS: 31500; 36415; 36600; 70450; 71045; 80048; 80053; 80074; 82805; 82962; 83605; 83735; 83880; 84484; 85025; 85610; 85730; 87040; 87070; 87081; 87205; 90935; 92610; 93005; 94002; 94003; 97110; 97116; 97163; 97530; 99291; C9113; G0378; J1642; J1815; J2250; J2543; J2704; J3490; J7060

== ENCOUNTER 2023-07-10 17:25 | Inpatient (IN) | payer MEDICARE, MEDICAID ==
[~2023-07-10] VITALS: Ht 170.2 cm; Wt 80.0 kg
[~2023-07-10 17:25] MED LIST changes: +DULA0.5I SC; +FERR1TAB17 PO; +FURO1TAB32 PO; +LUBI24CA6 PO; +NIFE1TAB30 PO; +NIFE90TA75 PO; +SITA50TA PO
[2023-07-10] MEDS: FUROSEMIDE 100 MG/10ML VIAL IV ONE (18:15)
[2023-07-10 18:41] VITALS: PULSE 75; RESP 17; O2SAT 99
[2023-07-10 18:47] LABS: Eosinophils # (auto) 0.4 10 ^3/uL (0-0.8); Hemoglobin 8.7 g/dL (13.5-17.5); Lymphocytes # (auto) 0.3 10 ^3/uL (0.4-5.4); Monocytes # (auto) 0.3 10 ^3/uL (0-1.3)
[2023-07-10 18:49] LABS: Basophils # (auto) 0.1 10 ^3/uL (0-0.2); Basophils % (auto) 0.9 % (0.0-2.0); Hematocrit 25.3 % (41.0-53.0); Lymphocytes % (auto) 3.9 % (10.0-50.0); Mean Corpuscular Hemoglobin 34.3 pg (28.0-32.0); Mean Corpuscular Hgb Conc. 34.5 g/dL (32.0-36.0); Mean Corpuscular Volume 99.3 fL (80.0-100.0); Monocytes % (auto) 4.8 % (0.0-12.0); Neutrophils % (auto) 85.4 % (37.0-80.0); Red Blood Cells 2.54 10^6/uL (4.5-5.90); Red Cell Distribution Width 13.5 % (11.8-14.3); White Blood Cell 7.1 10^3/uL (4.4-10.8)
[2023-07-10] MEDS: NITROGLYCERIN 0.4 MG SL TAB SL ONE (18:59)
[2023-07-10 19:02] LABS: Alkaline Phosphatase 102 U/L (46-116)
[2023-07-10 19:03] LABS: Albumin 4.1 g/dL (3.2-4.8); Anion Gap 8 (5-15); Aspartate Aminotransferase < 8 U/L (13-40); BUN/Creatinine Ratio 7.7 (10.0-20.0); Bilirubin, Total 0.5 mg/dL (0.2-1.0); Blood Urea Nitrogen 65 mg/dL (9-23); Calcium 9.8 mg/dL (8.7-10.4); Carbon Dioxide 29 mmol/L (20-30); Chloride 100 mmol/L (98-107); Glucose 91 mg/dL (74-106); Potassium 4.7 mmol/L (3.5-5.1); Sodium 137 mmol/L (136-145); Total Protein 6.7 g/dL (5.7-8.2)
[2023-07-10 19:05] LABS: Alanine Aminotransferase < 9 U/L (7-40)
[2023-07-10] MEDS: LABETALOL HCL 5 MG/ML 4ML SYRINGE IV ONE (19:10)
[2023-07-10 19:45] VITALS: PULSE 72; RESP 72; O2SAT 97
[2023-07-10 20:08] VITALS: BP 234/116; PULSE 78; O2SAT 100
[2023-07-10] MEDS ORDERED: NITROGLYCERIN 50MG/250ML 250 ML IV SCH (20:15)
[2023-07-10] MEDS: hydrALAZINE HCL 20 MG/ML VL IV ONE (20:43)
[2023-07-10 20:47] VITALS: BP 231/117; PULSE 78; RESP 17; O2SAT 100
[2023-07-10] MEDS: cefTRIAXone 1GM/50ML D5W 50 ML IV ONE (20:51)
[2023-07-10] MEDS ORDERED: hydrALAZINE HCL 20 MG/ML VL IV PRN (22:15)
[2023-07-10] MEDS ORDERED: DOCUSATE SOD 100 MG CAP PO PRN (22:15)
[2023-07-10] MEDS ORDERED: DEXTROSE (50%) 50ML SYRG IV PRN (22:15)
[2023-07-10 22:51] VITALS: BP 192/91; PULSE 77; O2SAT 97
[2023-07-11] VITALS (7 sets, daily range): BP systolic 120–189; BP diastolic 63–83; PULSE 61–80; RESP 14–23; O2SAT 93–100
[2023-07-11] MEDS ORDERED: NITROGLYCERIN 0.4 MG SL TAB SL PRN
[2023-07-11] MEDS: methylPREDNISolone SOD SUCC 125 MG/2 ML VL IV ONE (00:20)
[2023-07-11] MEDS: SODIUM CHLOR 0.9% PF (SALINE LOCK) 10ML VIAL/SYR IV SCH (06:02)
[2023-07-11 06:08] LABS: Hemoglobin 9.4 g/dL (13.5-17.5); White Blood Cell 6.7 10^3/uL (4.4-10.8)
[2023-07-11 06:10] LABS: Hematocrit 27.2 % (41.0-53.0); Mean Corpuscular Hemoglobin 34.2 pg (28.0-32.0); Mean Corpuscular Hgb Conc. 34.5 g/dL (32.0-36.0); Red Blood Cells 2.75 10^6/uL (4.5-5.90); Red Cell Distribution Width 13.6 % (11.8-14.3)
[2023-07-11 06:15] LABS: Band Neutrophils % (manual) 0; Basophils % (manual) 0 (0.0-2.0); Blast Cells 0; Metamyelocytes % 0; Myelocytes % 0; Promyelocytes % 0; Reactive Lymphocytes 0
[2023-07-11 06:20] LABS: Albumin 4.4 g/dL (3.2-4.8); Alkaline Phosphatase 107 U/L (46-116); Anion Gap 9 (5-15); Aspartate Aminotransferase < 8 U/L (13-40); BUN/Creatinine Ratio 7.1 (10.0-20.0); Blood Urea Nitrogen 66 mg/dL (9-23); Calcium 10.1 mg/dL (8.5-10.1); Carbon Dioxide 28 mmol/L (20-30); Chloride 98 mmol/L (98-107); Glucose 148 mg/dL (74-106); Potassium 4.6 mmol/L (3.5-5.1); Sodium 135 mmol/L (136-145)
[2023-07-11 06:21] LABS: Bilirubin, Total 0.6 mg/dL (0.2-1.0); Total Protein 7.2 g/dL (5.7-8.2)
[2023-07-11 06:25] LABS: Alanine Aminotransferase < 9 U/L (7-40)
[2023-07-11] MEDS: ACCU-CHEK COMFORT CURVE STRIP VI SCH (06:57)
[2023-07-11 06:59] LABS: Eosinophils % (manual) 1 (0-7); Lymphocytes % (manual) 2 (10.0-50.0); Monocytes % (manual) 1 (0-12); Platelet Estimate Adequate
[2023-07-11] MEDS: InsuLIN REG 1unit/0.01ml Soln (100units/ml) SC SCH (07:12)
[2023-07-11 07:13] LABS: COVID19 ANTIGEN SOFIA FIA NEGATIVE (NEGATIVE); Rapid Influenza A Negative (Negative); Rapid Influenza B Negative (Negative)
[2023-07-11] MEDS: CARVEDILOL 12.5 MG TAB PO SCH (08:40)
[2023-07-11] MEDS: B-COMPLEX W/ C & FOLIC ACID(NEPHROVITE TAB) PO SCH (08:40)
[2023-07-11] MEDS: FAMOTIDINE (10MG/ML) 2ML VL IV SCH (08:42)
[2023-07-11] MEDS: AZITHROMYCIN 500MG/ 250ML 250 ML IV SCH (08:42)
[2023-07-11] MEDS: cefTRIAXone 1GM/50ML D5W 50 ML IV SCH (08:43)
[2023-07-11] MEDS: SEVELAMER 800 MG TAB PO SCH (08:43)
[2023-07-11] MEDS ORDERED: FAMOTIDINE (10MG/ML) 2ML VL IV SCH (10:00)
[2023-07-11] MEDS: hydrALAZINE HCL 20 MG/ML VL IV PRN (13:38)
[2023-07-11] MEDS: NIFEdipine ER 30 MG TAB PO ONE (14:26)
[2023-07-11] MEDS: cloNIDine HCL 0.1 MG TAB PO ONE (16:10)
[2023-07-11] MEDS ORDERED: CARV6.2551 PO (16:57)
[2023-07-11] MEDS ORDERED: PRED1SUS4 LEFTEYE (17:01)
[2023-07-11] MEDS ORDERED: SEVE800T8 PO (17:03)
[2023-07-11] MEDS ORDERED: SEVE800T20 PO (17:05)
[2023-07-11] MEDS: hydrALAZINE HCL 20 MG/ML VL IV ONE (18:04)
[2023-07-11] MEDS: HYDROcodone-ACET 5/325MG TAB PO PRN (18:28)
[2023-07-11] MEDS: cloNIDine HCL 0.1 MG TAB PO SCH (22:00)
[2023-07-12 05:05] LABS: Basophils # (auto) 0 10 ^3/uL (0-0.2); Basophils % (auto) 0.4 % (0.0-2.0); Eosinophils # (auto) 0.1 10 ^3/uL (0-0.8); Hemoglobin 9.2 g/dL (13.5-17.5)
[2023-07-12 05:08] LABS: Eosinophils % (auto) 0.6 % (0.0-7.0); Hematocrit 26.1 % (41.0-53.0); Lymphocytes # (auto) 0.5 10 ^3/uL (0.4-5.4); Lymphocytes % (auto) 5.7 % (10.0-50.0); Mean Corpuscular Hgb Conc. 35.3 g/dL (32.0-36.0); Mean Corpuscular Volume 99.4 fL (80.0-100.0); Monocytes # (auto) 0.7 10 ^3/uL (0-1.3); Neutrophils # (auto) 7.9 10 ^3/uL (1.6-8.6); Neutrophils % (auto) 85.3 % (37.0-80.0); Red Blood Cells 2.62 10^6/uL (4.5-5.90); Red Cell Distribution Width 13.8 % (11.8-14.3); White Blood Cell 9.3 10^3/uL (4.4-10.8)
[2023-07-12 05:16] LABS: Alkaline Phosphatase 95 U/L (46-116); Carbon Dioxide 31 mmol/L (20-30); Chloride 98 mmol/L (98-107); Glucose 103 mg/dL (74-106); LDL Cholesterol 58 mg/dL (< 100); Potassium 3.7 mmol/L (3.5-5.1); Triglycerides 77 mg/dL (< 150)
[2023-07-12 05:17] LABS: Albumin 4.2 g/dL (3.2-4.8); Anion Gap 6 (5-15); Aspartate Aminotransferase < 8 U/L (13-40); BUN/Creatinine Ratio 6.1 (10.0-20.0); Bilirubin, Total 0.5 mg/dL (0.2-1.0); Cholesterol 141 mg/dL (< 200); HDL Cholesterol 68 mg/dL (40-59); Sodium 135 mmol/L (136-145); Total Protein 6.8 g/dL (5.7-8.2)
[2023-07-12 05:52] LABS: Alanine Aminotransferase < 9 U/L (7-40); Blood Urea Nitrogen 44 mg/dL (9-23)
[2023-07-12] MEDS ORDERED: methylPREDNISolone SOD SUCC 40 MG/ML VL IV SCH (06:00)
[2023-07-12] MEDS: FUROSEMIDE 40 MG/4 ML VIAL IV SCH (06:17)
[2023-07-12 08:37] VITALS: PULSE 89; RESP 1; O2SAT 96
[2023-07-12] MEDS: NIFEdipine ER 30 MG TAB PO SCH (10:05)
[2023-07-12 19:30] VITALS: PULSE 77; RESP 16; O2SAT 90
[2023-07-12] MEDS ORDERED: EPOETIN ALFA-EPBX 10,000 UNIT/1ML VIAL SC ONE (21:00)
[2023-07-12] MEDS: MORPHINE SULFATE INJ 2 MG/ml SYRG IV PRN (21:33)
[2023-07-12] MEDS: ONDANSETRON HCL 4 MG/2 ML VIAL IV PRN (21:34)
[2023-07-12] MEDS: EPOETIN ALFA-EPBX 4,000 UNIT/ML VIAL SC ONE (21:35)
[2023-07-12] MEDS: cloNIDine HCL 0.1 MG TAB PO SCH (21:36)
[2023-07-12] MEDS: SODIUM CHL 0.9% 1000 ML BAG XX ONE ×2 (21:56→21:57)
[2023-07-13] VITALS (7 sets, daily range): BP systolic 159–162; BP diastolic 66–89; PULSE 66–78; RESP 18–20; TEMP 97.6–98.6; O2SAT 94–96
[2023-07-13] MEDS: ACETAMINOPHEN 325 MG TAB PO PRN (01:22)
[2023-07-13 05:48] LABS: Eosinophils # (auto) 0.2 10 ^3/uL (0-0.8); Hemoglobin 8.8 g/dL (13.5-17.5); Monocytes # (auto) 0.5 10 ^3/uL (0-1.3); Neutrophils # (auto) 6.2 10 ^3/uL (1.6-8.6); White Blood Cell 7.4 10^3/uL (4.4-10.8)
[2023-07-13 05:50] LABS: Basophils # (auto) 0 10 ^3/uL (0-0.2); Basophils % (auto) 0.3 % (0.0-2.0); Eosinophils % (auto) 2.1 % (0.0-7.0); Hematocrit 25.4 % (41.0-53.0); Lymphocytes # (auto) 0.4 10 ^3/uL (0.4-5.4); Lymphocytes % (auto) 5.9 % (10.0-50.0); Mean Corpuscular Hemoglobin 34.6 pg (28.0-32.0); Mean Corpuscular Hgb Conc. 34.7 g/dL (32.0-36.0); Mean Corpuscular Volume 99.9 fL (80.0-100.0); Monocytes % (auto) 7.4 % (0.0-12.0); Neutrophils % (auto) 84.3 % (37.0-80.0); Red Blood Cells 2.54 10^6/uL (4.5-5.90); Red Cell Distribution Width 14.3 % (11.8-14.3)
[2023-07-13 05:55] LABS: Chloride 97 mmol/L (98-107); Potassium 3.8 mmol/L (3.5-5.1); Sodium 136 mmol/L (136-145)
[2023-07-13 05:56] LABS: Anion Gap 8 (5-15); Calcium 9.7 mg/dL (8.7-10.4); Carbon Dioxide 31 mmol/L (20-30)
[2023-07-13 06:01] LABS: BUN/Creatinine Ratio 4.8 (10.0-20.0); Glucose 114 mg/dL (74-106)
[2023-07-13 06:07] LABS: Blood Urea Nitrogen 27 mg/dL (9-23)
[2023-07-13] MEDS ORDERED: AZIT-43 PO (12:19)
[2023-07-14 08:33] LABS: Hepatitis B Surface Antigen Negative (Negative)
[2023-07-14 11:41] LABS: Hepatitis C Antibody Reactive (Negative)
[2023-07-14] MEDS ORDERED: EPOETIN ALFA-EPBX 4,000 UNIT/ML VIAL SC ONE (21:00)
== END 2023-07-13 19:00 | disposition home or self-care (01) | DRG 177 ==
LOC: ER 17:25 → EDBD 17:25 → TELE 23:57 → TELE-WESTW 07-12 23:47
PROVIDERS: ADMIT Internal Medicine Pulmonary Disease; ATTEND Internal Medicine Pulmonary Disease
PROC: 5A09357 Assistance with Respiratory Ventilation, Less than 24 Consecutive Hours, Continuous Positive Airway Pressure (ICD-10-PCS; 2023-07-10)
PROC: 5A1D70Z Performance of Urinary Filtration, Intermittent, Less than 6 Hours Per Day (ICD-10-PCS; principal; 2023-07-11)
PROC: 5A1D70Z Performance of Urinary Filtration, Intermittent, Less than 6 Hours Per Day (ICD-10-PCS; 2023-07-12)
DX: J15.69 Pneumonia due to other Gram-negative bacteria (principal); I50.43 Acute on chronic combined systolic (congestive) and diastolic (congestive) heart failure; J96.01 Acute respiratory failure with hypoxia; N18.6 End stage renal disease; I13.2 Hypertensive heart and chronic kidney disease with heart failure and with stage 5 chronic kidney disease, or end stage renal disease; N25.81 Secondary hyperparathyroidism of renal origin; J15.9 Unspecified bacterial pneumonia; I16.0 Hypertensive urgency; E11.22 Type 2 diabetes mellitus with diabetic chronic kidney disease; D64.9 Anemia, unspecified; E78.5 Hyperlipidemia, unspecified; F17.210 Nicotine dependence, cigarettes, uncomplicated; Z82.49 Family history of ischemic heart disease and other diseases of the circulatory system; Z99.2 Dependence on renal dialysis; Z79.4 Long term (current) use of insulin
CPT/HCPCS: 36415; 36600; 70450; 71045; 80048; 80053; 80061; 82805; 82962; 83036; 83605; 83880; 84484; 85007; 85025; 85027; 86803; 86850; 86900; 86901; 87081; 87340; 87426; 87804; 90935; 93005; 93306; 94640; 94660; 99291; G0378; J1815; J2405; J3490

== ENCOUNTER 2025-03-12 19:22 | Inpatient (IN) | payer MEDICARE, OTHER ==
[~2025-03-12] VITALS: Ht 170.2 cm; Wt 71.7 kg
[~2025-03-12 19:22] MED LIST changes: -AMLO1TAB22 PO; -AMOX500T86 PO; +AZIT-43 PO; -CARV12.544 PO; +CARV6.2551 PO; -HYDR-4297 PO; +HYDR50TA47 PO; -LUBI24CA6 PO; +LUBI24CA7 PO; -NIFE1TAB30 PO; +PRED1SUS4 LEFTEYE; -SEVE800T PO; +SEVE800T20 PO
[2025-03-12 20:17] LABS: Hematocrit 38.1 % (41.0-53.0); Hemoglobin 13.4 g/dL (13.5-17.5); Mean Corpuscular Hemoglobin 33.8 pg (28.0-32.0); Mean Corpuscular Volume 96.2 fL (80.0-100.0); Nucleated Red Blood Cells % 0.3 %
[2025-03-12 20:23] LABS: INR 1.18 (0.9-1.15); Partial Thromboplastin Time 26.5 SEC (24.5-34.5); Potassium 4.1 mmol/L (3.5-5.1); Prothrombin Time 12.3 sec (9.3-11.8); Sodium 137 mmol/L (136-145)
[2025-03-12 20:24] LABS: Anion Gap 13 (5-15); Carbon Dioxide 30 mmol/L (20-31)
[2025-03-12 20:25] LABS: Calcium 10.3 mg/dL (8.7-10.4)
[2025-03-12 20:30] LABS: BUN/Creatinine Ratio 5.5 (10.0-20.0); Blood Urea Nitrogen 29 mg/dL (9-23); Chloride 94 mmol/L (98-107); Glucose 115 mg/dL (74-106)
[2025-03-12] MEDS: SODIUM CHLORIDE 0.9% 1,000 ML IV ONE (20:59)
[2025-03-12] MEDS: ONDANSETRON HCL 4 MG/2 ML VIAL IV ONE (21:01)
[2025-03-12] MEDS: MORPHINE SULFATE 4 MG/ML SYR/VIAL IV ONE (21:01)
[2025-03-12] MEDS: PANTOPRAZOLE 40 MG/10 ML VIAL INJ IV ONE (21:01)
--- NOTE | 2025-03-12 21:05 | ED.PDOC ---
History of Present Illness HPI Comments 59-year-old male is brought in by ambulance for chief complaint of hypotension. Patient reports on attending his scheduled hemodialysis session without taking his blood pressure medication, early, today. He then states on going home and taking his blood pressure medication and checking and noticing his blood pressure being abnormally low prior to calling EMS. Patient also reports on having abdominal pain and black stool production since 03/09/25. He denies any further acute symptoms. Chief Complaint: Abdominal Pain Time Seen by MD: 19:05 Reviewed Notes: Nurses Notes, Medications, Allergies Allergies: Coded Allergies: NO KNOWN ALLERGIES (Unverified , 03/12/25) Information Source: Patient, Emergency Med Personnel Mode of Arrival: EMS Severity: Moderate Timing: Hours Duration: Since onset Prehospital treatment: 12 Lead EKG, Accucheck, Seaming Inspector Past Medical History PAST MEDICAL HISTORY: ESRD Surgical History: Denies all surgeries Social History Smoker: Non-Smoker Alcohol: Denies ETOH Use Drugs: Denies Drug Use Lives In: Home All Other Systems: Reviewed and Negative (Comprehensive review of systems are negative unless stated in HPI) Physical Exam General Appearance: No Apparent Distress, Normal HEENT: Normal ENT Inspection, Pharynx Normal, TMs Normal Neck: Full Range of Motion, Non-Tender, Normal, Normal Inspection Respiratory: Chest Non-Tender, Lungs Clear, No Accessory Muscle Use, No Respiratory Distress, Normal Breath Sounds Cardiovascular: No Edema, No JVD, No Murmur, No Gallop, Normal Peripheral Pulses, Regular Rate/Rhythm Breast Exam: Deferred Gastrointestinal: Diffuse (Tenderness), No Organomegaly, No Pulsatile Mass, Normal Bowel Sounds, Soft, Tenderness (Diffuse abdominal tenderness) Genitalia: Deferred Pelvic: Deferred Rectal: Deferred Extremities: No calf tenderness, Normal capillary refill, Normal inspection, Normal range of motion, Non-tender, No pedal edema Musculoskeletal : Apperance: Normal Neurologic: Alert, instrumentation and controls technician II-XII nml as Tested, No Motor Deficits, Normal Affect, Normal Mood, No Sensory Deficits Cerebellar Function: Normal Reflexes: Normal Skin: Dry, Normal Color, Warm, Other (Right AV fistula) Lymphatic: No Adenopathy Was a procedure done? Was a procedure done?: No Differential Dx Considerations may include: Hypotension, inappropriate medication dosage, dehydration, electrolyte imbalance, noncompliance, among others X-Ray, Labs, Meds, VS Vital Signs Date Time Temp Pulse Resp B/P (MAP) Pulse Ox O2 Delivery O2 Flow Rate FiO2 03/12/25 21:19 98.0 59 19 149/77 (101) 99 98.0 03/12/25 21:01 59 19 149/77 03/12/25 19:34 98.7 60 18 145/68 95 98.7 Lab Test 03/12/25 19:53 Range/Units White Blood Count 5.9 4.4-10.8 10^3/uL Red Blood Count 3.97 L 4.5-5.90 10^6/uL Hemoglobin 13.4 L 13.5-17.5 g/dL Hematocrit 38.1 L 41.0-53.0 % Mean Corpuscular Volume 96.2 80.0-100.0 fL Mean Corpuscular Hemoglobin 33.8 H 28.0-32.0 pg Mean Corpuscular Hemoglobin Concent 35.1 32.0-36.0 g/dL Red Cell Distribution Width 13.5 11.8-14.3 % Platelet Count 161 140-450 10^3/uL Mean Platelet Volume 8.3 6.9-10.8 fL Neutrophils (%) (Auto) 84.0 H 37.0-80.0 % Lymphocytes (%) (Auto) 5.7 L 10.0-50.0 % Monocytes (%) (Auto) 6.1 0.0-12.0 % Eosinophils (%) (Auto) 3.1 0.0-7.0 % Basophils (%) (Auto) 1.1 0.0-2.0 % Neutrophils # (Auto) 4.9 1.6-8.6 10 ^3/uL Lymphocytes # (Auto) 0.3 L 0.4-5.4 10 ^3/uL Monocytes # (Auto) 0.4 0-1.3 10 ^3/uL Eosinophils # (Auto) 0.2 0-0.8 10 ^3/uL Basophils # (Auto) 0.1 0-0.2 10 ^3/uL Nucleated Red Blood Cells 0.3 % Prothrombin Time 12.3 H 9.3-11.8 sec Prothrombin Time INR 1.18 H 0.9-1.15 Activated Partial Thromboplast Time 26.5 24.5-34.5 SEC Sodium Level 137 136-145 mmol/L Potassium Level 4.1 3.5-5.1 mmol/L Chloride Level 94 L 98-107 mmol/L Carbon Dioxide Level 30 20-31 mmol/L Anion Gap 13 5-15 Blood Urea Nitrogen 29 H 9-23 mg/dL Creatinine 5.32 H 0.700-1.30 mg/dL Glomerular Filtration Rate Calc 12 >90 mL/min BUN/Creatinine Ratio 5.5 L 10.0-20.0 Serum Glucose 115 H 74-106 mg/dL Calcium Level 10.3 8.7-10.4 mg/dL Current Medications Medications (Trade) Dose Ordered Sig/Alfredo Route Start Time Stop Time Status Last Admin Morphine Sulfate 4 mg ONCE ONCE IV 03/12/25 19:45 03/12/25 19:46 DC 03/12/25 21:01 Ondansetron HCl (Zofran) 4 mg ONCE ONCE IV 03/12/25 19:45 03/12/25 19:46 DC 03/12/25 21:01 Pantoprazole Sodium (Protonix) 80 mg ONCE ONCE IV 03/12/25 19:45 03/12/25 19:47 DC 03/12/25 21:01 Time of 1ST Reevaluation: 19:35 Reevaluation 1ST: Unchanged Patient Education/Counseling: Diagnosis, Treatment Family Education/Counseling: No Family Present Additional Information Additional historians: EMS personnel Previous medical visits reviewed: None Additional imaging and studies ordered and reviewed: CT abdomen pelvis without contrast Labs ordered and reviewed: CBC, BMP, PT PTT, type and screen SEPSIS Sepsis Screen Date sepsis recognized/suspect: Mar 12, 2025 Time Sepsis recognized/suspect: 1940 Recent Procedure: No On Antibiotic Therapy: No Respiratory Rate >20: No Heart Rate >90: No Temp<36 C (96.8 F) or >38.3 C: No SBP <90 or MAP <65 mmHG: No New Acute Mental Status Change: No Is the patient on CPAP, BIPAP,: No Physician Orders Ct Ab Pel Wo Con-No Oral Or Iv (03/12/25 19:52) Vital Signs Date Time Temp Pulse Resp B/P (MAP) Pulse Ox O2 Delivery O2 Flow Rate FiO2 03/12/25 21:19 98.0 59 19 149/77 (101) 99 98.0 03/12/25 21:01 59 19 149/77 03/12/25 19:34 98.7 60 18 145/68 95 98.7 Laboratory Tests Test 03/12/25 19:53 White Blood Count 5.9 10^3/uL (4.4-10.8) Medications Medications Dose Ordered Sig/Alfredo Route Start Time Stop Time Status Last Admin Dose Admin Morphine Sulfate 4 mg ONCE ONCE IV 03/12/25 19:45 03/12/25 19:46 DC 03/12/25 21:01 Ondansetron HCl 4 mg ONCE ONCE IV 03/12/25 19:45 03/12/25 19:46 DC 03/12/25 21:01 Pantoprazole Sodium 80 mg ONCE ONCE IV 03/12/25 19:45 03/12/25 19:47 DC 03/12/25 21:01 Departure 1 Departure Time of Disposition: 21:23 (Patient presented with abdominal pain that was concerning for possible appendicits, gastritis, cholecystitis, colitis, gastroenteritis, sbo, or orther possible surgical emergency. Data: 1. I ordered and reviewed the result of at least 3 labs including a CBC, BMP, and Urinalysis. 2. I independently interpreted the following tests: CT Abdomen and Pelvis is concerning for chronic abdominal problems .Risk:This patient has a high risk of morbidity due to further diagnostic testing or treatment and may suffer from an acute abdominal process disorder. Workup reveals black tarry stool concern for GI bleed and patient should be admitted for further workup. and possible expert consultation. ) Impression: Primary Impression: Bright red blood per rectum Additional Impressions: Black stool Intractable abdominal pain ESRD (end stage renal disease) Disposition: ADMITTED INPATIENT Admit to: Tele Condition: Guarded Critical Care Note Critical Care Time?: Yes Critical care comment: Concern for GI bleed Authorized and Performed by: Frida Brandt MD Total critical care time: Approximately 80 minutes Due to a high probability of clinically significant, life threatening deterioration, the patient required my highest level of preparedness to intervene emergently and I personally spent this critical care time directly and personally managing the patient. This critical care time included obtaining a history; examining the patient; pulse oximetry; ordering and review of studies; arranging urgent treatment with development of a management plan; evaluation of patient's response to treatment; frequent reassessment; and, discussions with other providers. This critical care time was performed to assess and manage the high probability of imminent, life-threatening deterioration that could result in multi-organ failure. It was exclusive of separately billable procedures and treating other patients and teaching time. Please see my other sections and the rest of the note for further information on patient assessment and treatment. Stability Stability form required: No Heart Score Heart Score: Heart Score Response (Comments) Value History N/A 0 EKG N/A 0 Age N/A 0 Risk Factors N/A 0 Troponin N/A 0 Total 0 I personally scribed for FRIDA BRANDT MD ([email or web address]) on 03/12/25 at 21:05. Electronically submitted by Ruben Lion ([email or web address]). FRIDA BRANDT MD Mar 12, 2025 21:05
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
[2025-03-13] VITALS (8 sets, daily range): BP systolic 147–211; BP diastolic 84–96; PULSE 7–74; RESP 12–18; TEMP 97.1–97.8; O2SAT 95–97
[2025-03-13] MEDS ORDERED: ACETAMINOPHEN 325 MG TAB PO PRN (05:45)
[2025-03-13] MEDS ORDERED: DOCUSATE SOD 100 MG CAP PO PRN (05:45)
[2025-03-13] MEDS ORDERED: MORPHINE SULFATE INJ 2 MG/ml SYRG IV PRN (05:45)
[2025-03-13] MEDS ORDERED: ONDANSETRON HCL 4 MG/2 ML VIAL IV PRN (05:45)
[2025-03-13] MEDS ORDERED: NITROGLYCERIN 0.4 MG SL TAB SL PRN ×2 (05:45→16:15)
[2025-03-13] MEDS: SODIUM CHLOR 0.9% PF (SALINE LOCK) 10ML VIAL/SYR IV SCH (06:26)
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
[2025-03-13 06:57] LABS: Alanine Aminotransferase 10 U/L (7-40); Albumin 4.7 g/dL (3.2-4.8); Alkaline Phosphatase 85 U/L (46-116); Anion Gap 8 (5-15); BUN/Creatinine Ratio 5.8 (10.0-20.0); Calcium 10.3 mg/dL (8.7-10.4); Glucose 90 mg/dL (74-106); Potassium 4.6 mmol/L (3.5-5.1); Sodium 137 mmol/L (136-145)
[2025-03-13 06:58] LABS: Bilirubin, Total 0.6 mg/dL (0.2-1.0)
[2025-03-13 07:04] LABS: Blood Urea Nitrogen 36 mg/dL (9-23); Carbon Dioxide 32 mmol/L (20-31); Chloride 97 mmol/L (98-107); Total Protein 8.7 g/dL (5.7-8.2)
[2025-03-13 07:23] LABS: Hematocrit 40.3 % (41.0-53.0)
[2025-03-13 07:25] LABS: Hemoglobin 14.4 g/dL (13.5-17.5); Mean Corpuscular Hemoglobin 34.0 pg (28.0-32.0); Mean Corpuscular Volume 95.0 fL (80.0-100.0); Nucleated Red Blood Cells % 0.1 %
[2025-03-13] MEDS: FAMOTIDINE (10MG/ML) 2ML VL IV SCH (08:13)
[2025-03-13] MEDS: hydrALAZINE HCL 20 MG/ML VL IV PRN (08:15)
[2025-03-13] MEDS: HYDROcodone-ACET 5/325MG TAB PO PRN (09:02)
[2025-03-13] MEDS ORDERED: FAMOTIDINE (10MG/ML) 2ML VL IV SCH (10:00)
[2025-03-13] MEDS: MORPHINE SULFATE INJ 2 MG/ml SYRG IV PRN (12:36)
--- NOTE | 2025-03-13 14:00 | DVHPN2 ---
Subjective I am assuming the care of the patient from today onwards. Patient was seen and evaluated by me at bedside in the ER patient's systolic blood pressure running more than 200 but he denies any headache. Changes from previous H/P or p: No Changes Eyes: No Pain, No Vision change, No Conjunctivae inflammation, No Eyelid inflammation, No Other, No Redness ENT: No Ear pain, No Ear discharge, No Nose pain, No Nose discharge, No Nose congestion, No Mouth pain, No Mouth swelling, No Throat pain, No Throat swelling, No Other Cardiovascular: No Chest Pain, No Palpitations, No Orthopnea, No Paroxysmal Noc. Dyspnea, No Edema, No Lt Headedness, No Other Respiratory: No Cough, No Dry, No Shortness of breath, No SOB with excertion, No Wheezing, No Hemoptysis, No Pleuritic Pain, No Sputum, No Other Gastrointestinal: No Nausea, No Vomiting; Abdominal Pain; No Diarrhea, No Constipation; Melena; No Hematochezia, No Other Genitourinary: No Dysuria, No Frequency, No Incontinence, No Hematuria, No Retention; Other (On hemodialysis) Musculoskeletal: other (Right upper arm AV fistula); No neck pain, No shoulder pain, No arm pain, No back pain, No hand pain, No leg pain, No foot pain Skin: No Rash, No Lesions, No Jaundice, No Bruising, No Other Objective Vitals Vital Signs Date Time Temp Pulse Resp B/P (MAP) Pulse Ox O2 Delivery O2 Flow Rate FiO2 03/13/25 13:26 72 18 228/100 03/13/25 13:02 97.8 96 97.8 Exam HEENT pupils are reactive Neck is supple CV is S1-S2 regular rate and rhythm Respiratory diminished breath sounds bases GI positive bowel sounds Extremity no edema 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 Medications Current Medications Medications Dose Ordered Sig/Alfredo Route Start Time Stop Time Status Last Admin Dose Admin Famotidine 20 mg Q12HR IV 03/13/25 10:00 UNV Sodium Chloride 10 ml Q8HR IV 03/13/25 06:00 03/13/25 12:34 10 ML Acetaminophen/ Hydrocodone Bitart 1 tab Q4HP PRN PO 03/13/25 05:45 03/13/25 09:02 1 TAB Ondansetron HCl 4 mg Q4HP PRN IV 03/13/25 05:45 Docusate Sodium 100 mg BIDPRN PRN PO 03/13/25 05:45 Acetaminophen 500 mg Q6HP PRN PO 03/13/25 05:45 Morphine Sulfate 2 mg Q4HPRN PRN IV 03/13/25 05:45 03/13/25 12:36 2 MG Nitroglycerin 0.4 mg Q5MINP PRN SL 03/13/25 05:45 Morphine Sulfate 2 mg Q30M PRN IV 03/13/25 05:45 Hydralazine HCl 10 mg Q6HP PRN IV 03/13/25 05:45 03/13/25 08:15 10 MG Famotidine 10 mg DAILY IV 03/13/25 10:00 03/13/25 08:13 10 MG Clonidine HCl 0.1 mg BID PO 03/13/25 22:00 Nifedipine 90 mg DAILY PO 03/14/25 10:00 Carvedilol 6.25 mg BID PO 03/13/25 22:00 Laboratory Results Laboratory Tests 03/13/25 06:27 Chemistry Test 03/12/25 19:53 03/13/25 06:27 Calcium Level 10.3 mg/dL (8.7-10.4) 10.3 mg/dL (8.7-10.4) Albumin 4.7 g/dL (3.2-4.8) Total Protein 8.7 g/dL (5.7-8.2) H Coagulation Test 03/12/25 19:53 Prothrombin Time 12.3 sec (9.3-11.8) H Prothrombin Time INR 1.18 (0.9-1.15) H Activated Partial Thromboplast Time 26.5 SEC (24.5-34.5) Cardiac Markers Test 03/13/25 06:27 B-Type Natriuretic Peptide 4275.71 pg/mL (0-100) LFT Test 03/13/25 06:27 Alanine Aminotransferase (ALT) 10 U/L (7-40) Alkaline Phosphatase 85 U/L (46-116) Aspartate Amino Transferase (AST) < 8 U/L (13-40) L Total Bilirubin 0.6 mg/dL (0.2-1.0) Assessment/Plan Assessment/Plan 59-year-old male with a known history of end-stage renal disease on hemodialysis, initially presented to the hospital with blood in stool/black stool, patient has had hemodialysis yesterday and then he was found to have low blood pressure at home eventually came to the ER. 1. Hypertensive urgency 2. Blood in stool rule out upper GI/lower GI bleed 3. End-stage renal disease on hemodialysis 4. Abdominal pain unspecified -check stool occult blood test, resume hypertensive med, hemodialysis per nephrology. Plan discussed with: Patient My Orders Orders - CAMILLE JOSEPH MD Procedure Category Date Status Time Clonidine Hcl Tablet PHA 03/13/25 In Process (Catapres Tablet) 22:00 Nifedipine Er PHA 03/14/25 In Process (Procardia Xl 10:00 Carvedilol Tablet PHA 03/13/25 In Process (Coreg Tablet) 22:00 Date of Service: Mar 13, 2025 Billing Provider: CAMILLE JOSEPH MD Common Visit Codes: [id number] INP/OBS CARE(HIGH) CAMILLE JOSEPH MD Mar 13, 2025 14:00
[2025-03-13] MEDS ORDERED: MORPHINE SULFATE 4 MG/ML SYR/VIAL IV PRN (16:30)
--- NOTE | 2025-03-13 16:31 | DVHINCON2 ---
Date of service: Mar 13, [address] Kaur Reason for Consultation End-stage kidney disease on hemodialysis History of Present Illness This is a 59-year-old male with history of end-stage kidney disease on hemodialysis on Friday schedule presenting to the emergency room complaining of abdominal pain associated with black stools. Patient says he has been experiencing abdominal distention since Friday of last week. Has not been missing any of his dialysis treatments. Initial evaluation in the emergency room showed that his hemoglobin was stable at 13.4. CT of the abdomen and pelvis showed small volume ascites with diffuse body wall edema, mild cardiomegaly and bilateral atrophic kidneys Admitted for further workup and evaluation. Nephrology has been consulted for continuation of dialysis. Past Medical History Past Medical History ESRD, Hypertension Past Surgical History Past Surgical History Right upper extremity AV fistula Family History: Alzheimer's disease G8 MOTHER FH: heart attack FH: pancreatic cancer G8 FATHER Hypertension G8 MOTHER Family History Noncontributory Social History Denies any active history of smoking, alcohol or drug abuse Allergies: Coded Allergies: NO KNOWN ALLERGIES (Unverified , 10/27/20) Home Meds Active Scripts Azithromycin (Azithromycin) 250 Mg Tab, 250 MG PO DAILY MDD 500 for 4 Days, #4 TAB 0 Refills 2 TABLETS ORALLY ON DAY ONE, THEN 1 TABLET ORALLY DAILY FOR 4 DAYS Prov:SALOMÓN LU 07/13/23 Pantoprazole Sodium Sesquihydr (Protonix) 40 Mg Tab, 40 MG PO DAILY, #30 TAB Prov:JORDI ARMAS MD 12/31/21 Reported Medications Sevelamer Hydrochloride (Sevelamer Hydrochloride) 800 Mg Tab, 3 TAB PO TIDWM, TAB 07/11/23 Prednisolone Acetate (Ophth) (Pred Forte) 1 % Sabi, 1 DROP LEFTEYE QID for S/P SURGERY 07/11/23 Carvedilol (Carvedilol) 6.25 Mg Tab, 6.25 MG PO BID, TAB 07/11/23 Dulaglutide (Trulicity) 1.5 Mg/0.5 Ml Inj, 1.5 MG SC QWEEKLY, INJ 03/16/23 Furosemide (Lasix) 80 Mg Tab, 80 MG PO DAILY, TAB 03/16/23 Lubiprostone (Amitiza) 24 Mcg Cap, 24 MCG PO BID, CAP 03/16/23 Sitagliptin Phosphate (Januvia) 50 Mg Tab, 25 MG PO DAILY, TAB 03/16/23 Ferric Citrate (Auryxia) 210 Mg Tab, 2 TAB PO QIDACHS, TAB 03/16/23 Clonidine Hydrochloride (Clonidine Hcl) 0.1 Mg Tab, 0.2 MG PO TID for 30 Days, MG 03/16/23 Nifedipine (Nifedipine Er) 90 Mg Tab, 1 TAB PO BID, #30 TAB 5 Refills 03/16/23 Doxazosin Mesylate (Doxazosin Mesylate) 4 Mg Tab, 4 MG PO HS, MG 12/25/21 Hydralazine Hcl (Hydralazine Hcl) 50 Mg Tab, 100 MG PO TID, MG 12/25/21 Current Medications Current Medications Medications (Trade) Dose Ordered Sig/Alfredo Route PRN Reason Start Time Stop Time Status Last Admin Famotidine (Pepcid Injection) 20 mg Q12HR IV 03/13/25 10:00 UNV Aspirin 81 mg DAILY PO 03/13/25 10:00 03/13/25 06:30 DC Sodium Chloride (Saline Lock Ns) 10 ml Q8HR IV 03/13/25 06:00 03/13/25 12:34 Acetaminophen/ Hydrocodone Bitart ([place] 5/325MG Tab) 1 tab Q4HP PRN PO MODERATE PAIN (4-6 PAIN SCALE) 03/13/25 05:45 03/13/25 16:11 Ondansetron HCl (Zofran) 4 mg Q4HP PRN IV NAUSEA / VOMITING 03/13/25 05:45 Docusate Sodium (Colace Capsule) 100 mg BIDPRN PRN PO FOR CONSTIPATION 03/13/25 05:45 Acetaminophen (Tylenol Tablet) 500 mg Q6HP PRN PO PAIN SCALE 1-3 OR TEMP>100.4 03/13/25 05:45 Morphine Sulfate 2 mg Q4HPRN PRN IV SEVERE PAIN (7-10 PAIN SCALE) 03/13/25 05:45 03/13/25 12:36 Nitroglycerin (Ntrostat Sublingual) 0.4 mg Q5MINP PRN SL FOR CHEST PAIN 03/13/25 05:45 03/13/25 16:19 DC Morphine Sulfate 2 mg Q30M PRN IV FOR CHEST PAIN 03/13/25 05:45 11/9/25 16:17 DC Hydralazine HCl (Apresoline Injection) 10 mg Q6HP PRN IV SBP>150 03/13/25 05:45 03/13/25 15:27 Famotidine (Pepcid Injection) 10 mg DAILY IV 03/13/25 10:00 03/13/25 08:13 Clonidine HCl (Catapres Tablet) 0.1 mg BID PO 03/13/25 22:00 03/13/25 14:24 DC Nifedipine (Procardia Xl (Time-Release)) 90 mg DAILY PO 03/14/25 10:00 03/13/25 16:19 DC Carvedilol (Coreg Tablet) 6.25 mg BID PO 03/13/25 22:00 Clonidine HCl (Catapres Tablet) 0.2 mg BID PO 03/13/25 22:00 Nicardipine/ Sodium Chloride 200 ml @ 50 mls/hr Q4H IV 03/13/25 16:15 Nitroglycerin (Ntrostat Sublingual) 0.4 mg Q5MINP PRN SL FOR CHEST PAIN 03/13/25 16:15 Morphine Sulfate 2 mg Q30M PRN IV FOR CHEST PAIN 03/13/25 16:30 Review of Systems 12 point review of system negative except as stated in the HPI Vital Signs Vital Signs Date Time Temp Pulse Resp B/P (MAP) Pulse Ox O2 Delivery O2 Flow Rate FiO2 03/13/25 15:27 224/88 03/13/25 13:26 72 18 03/13/25 13:02 97.8 96 97.8 Physical Exam Awake alert oriented x3 HEENT: Normocephalic, no JVD Lungs: Bilateral good air entry CVS: S1, S2 regular rate rhythm Abdomen: Mildly distended DRAWER IN PLAIN LOOM: No focal deficits Extremities: Edema present Labs/Diagnostic Data Labs Test 03/13/25 06:27 03/12/25 19:53 Range/Units White Blood Count 5.4 4.4-10.8 10^3/uL Red Blood Count 4.24 L 4.5-5.90 10^6/uL Hemoglobin 14.4 13.5-17.5 g/dL Hematocrit 40.3 L 41.0-53.0 % Mean Corpuscular Volume 95.0 80.0-100.0 fL Mean Corpuscular Hemoglobin 34.0 H 28.0-32.0 pg Mean Corpuscular Hemoglobin Concent 35.8 32.0-36.0 g/dL Red Cell Distribution Width 13.7 11.8-14.3 % Platelet Count 188 140-450 10^3/uL Mean Platelet Volume 8.8 6.9-10.8 fL Neutrophils (%) (Auto) 82.3 H 37.0-80.0 % Lymphocytes (%) (Auto) 5.4 L 10.0-50.0 % Monocytes (%) (Auto) 7.8 0.0-12.0 % Eosinophils (%) (Auto) 3.7 0.0-7.0 % Basophils (%) (Auto) 0.8 0.0-2.0 % Neutrophils # (Auto) 4.5 1.6-8.6 10 ^3/uL Lymphocytes # (Auto) 0.3 L 0.4-5.4 10 ^3/uL Monocytes # (Auto) 0.4 0-1.3 10 ^3/uL Eosinophils # (Auto) 0.2 0-0.8 10 ^3/uL Basophils # (Auto) 0 0-0.2 10 ^3/uL Nucleated Red Blood Cells 0.1 % Sodium Level 137 136-145 mmol/L Potassium Level 4.6 3.5-5.1 mmol/L Chloride Level 97 L 98-107 mmol/L Carbon Dioxide Level 32 H 20-31 mmol/L Anion Gap 8 5-15 Blood Urea Nitrogen 36 H 9-23 mg/dL Creatinine 6.21 H 0.700-1.30 mg/dL Glomerular Filtration Rate Calc 10 >90 mL/min BUN/Creatinine Ratio 5.8 L 10.0-20.0 Serum Glucose 90 74-106 mg/dL Calcium Level 10.3 8.7-10.4 mg/dL Total Bilirubin 0.6 0.2-1.0 mg/dL Aspartate Amino Transferase (AST) < 8 L 13-40 U/L Alanine Aminotransferase (ALT) 10 7-40 U/L Alkaline Phosphatase 85 46-116 U/L B-Type Natriuretic Peptide 4275.71 0-100 pg/mL Total Protein 8.7 H 5.7-8.2 g/dL Albumin 4.7 3.2-4.8 g/dL Prothrombin Time 12.3 H 9.3-11.8 sec Prothrombin Time INR 1.18 H 0.9-1.15 Activated Partial Thromboplast Time 26.5 24.5-34.5 SEC Assessment End-stage kidney disease on hemodialysis Accelerated hypertension Abdominal distention with pain Plan/Recommendation Hemodialysis on MWF schedule. Ultrafiltration tomorrow of 3 L. Blood pressure control. GI evaluation. Plan discussed with: Patient CASSANDRA NIEVES MD Mar 13, 2025 16:31
[2025-03-13] MEDS: CARVEDILOL 3.125 MG TAB PO SCH (22:00)
[2025-03-14 07:30] VITALS: PULSE 61; RESP 13; TEMP 98.3; O2SAT 98
[2025-03-14 09:22] LABS: Hematocrit 37.1 % (41.0-53.0); Hemoglobin 12.8 g/dL (13.5-17.5); Mean Corpuscular Hemoglobin 33.8 pg (28.0-32.0); Mean Corpuscular Volume 97.9 fL (80.0-100.0); Nucleated Red Blood Cells % 0.2 %
[2025-03-14 09:46] LABS: Albumin 4.0 g/dL (3.2-4.8); Alkaline Phosphatase 77 U/L (46-116); BUN/Creatinine Ratio 4.2 (10.0-20.0); Bilirubin, Total 0.6 mg/dL (0.2-1.0); Calcium 9.7 mg/dL (8.7-10.4); Carbon Dioxide 26 mmol/L (20-31); Glucose 81 mg/dL (74-106); Sodium 136 mmol/L (136-145); Total Protein 7.3 g/dL (5.7-8.2)
[2025-03-14 09:49] LABS: Alanine Aminotransferase < 9 U/L (7-40); Blood Urea Nitrogen 31 mg/dL (9-23); Potassium 5.4 mmol/L (3.5-5.1)
[2025-03-14] MEDS: PANTOPRAZOLE 40 MG/10 ML VIAL INJ IV SCH (10:00)
[2025-03-14] MEDS: SUCRALFATE 1 GM/10 ML ORAL SUSP PO ONE (10:00)
[2025-03-14 10:20] LABS: Anion Gap 13 (5-15); Chloride 97 mmol/L (98-107)
[2025-03-14] MEDS: SODIUM CHL 0.9% 1000 ML BAG XX ONE (11:44)
--- NOTE | 2025-03-14 14:24 | DVHPN2 ---
Progress Note - Dictate Date Seen: Mar 14, 2025 Has the PT tested + for MRSA If YES, has PT been informed?: No Medical Necessity Reason Pt with a Central, PICC or Fol: No vital signs Vital Sign Date Time Temp Pulse Resp B/P (MAP) Pulse Ox O2 Delivery O2 Flow Rate FiO2 03/14/25 13:47 151/56 03/14/25 13:15 71 13 94 03/14/25 07:30 98.0 98.0 03/14/25 07:30 Nasal Cannula* 2 28 Total Intake and Output 03/13/25 03/13/25 03/14/25 15:00 23:00 07:00 Intake Total 450 ml 540 ml Balance 450 ml 540 ml medications Current Medications Medications Dose Ordered Sig/Alfredo Route Start Time Stop Time Status Last Admin Dose Admin Famotidine 20 mg Q12HR IV 03/13/25 10:00 UNV Sodium Chloride 10 ml Q8HR IV 03/13/25 06:00 03/14/25 14:07 10 ML Acetaminophen/ Hydrocodone Bitart 1 tab Q4HP PRN PO 03/13/25 05:45 03/13/25 16:11 1 TAB Ondansetron HCl 4 mg Q4HP PRN IV 03/13/25 05:45 Docusate Sodium 100 mg BIDPRN PRN PO 03/13/25 05:45 Acetaminophen 500 mg Q6HP PRN PO 03/13/25 05:45 Morphine Sulfate 2 mg Q4HPRN PRN IV 03/13/25 05:45 03/13/25 12:36 2 MG Hydralazine HCl 10 mg Q6HP PRN IV 03/13/25 05:45 03/13/25 15:27 10 MG Carvedilol 6.25 mg BID PO 03/13/25 22:00 Clonidine HCl 0.2 mg BID PO 03/13/25 22:00 03/13/25 22:35 0.2 MG Nicardipine/ Sodium Chloride 200 ml @ 50 mls/hr Q4H IV 03/13/25 16:15 03/14/25 13:46 90 MLS/HR Nitroglycerin 0.4 mg Q5MINP PRN SL 03/13/25 16:15 Morphine Sulfate 2 mg Q30M PRN IV 03/13/25 16:30 Pantoprazole Sodium 40 mg DAILY IV 03/14/25 10:00 Sucralfate 1 gm BID@0600,2200 PO 03/14/25 22:00 objective HEENT: No evidence of JVD, no oral ulcers. Pulmonary: Lungs are clear on auscultation bilaterally Cardiovascular S1-S2, no S3 or S4 Abdomen: Bowel sounds positive, soft no rebound tenderness Skin: No rash Neurological: Alert, oriented, no focal weakness Extremities: Trace edema in the lower legs laboratory and microbiology Laboratory Tests 03/14/25 08:53 Test 03/14/25 08:53 Range/Units Serum Glucose 81 74-106 mg/dL Assessment/Plan Assessment: End-stage kidney disease on hemodialysis Accelerated hypertension Diarrhea Abdominal distention with pain Plan and recommendations Hemodialysis on MWF schedule. Currently on nicardipine drip Resume oral antihypertensive meds and wean off nicardipine drip Today UF achieved 2.5 L Blood pressure control. GI evaluation. Plan discussed with: Patient YANIRA MCKINNON MD Mar 14, 2025 14:24
--- NOTE | 2025-03-14 15:53 | DVHCONRES ---
Date Seen: Mar 14, 2025 Resident Creating Document: JHAJJ,SARPUNEET RESIDENT Referring Physician HUNG Casey Reason for Consultation GI Bleed History of Present Illness Patient is a 59-year-old male with a medical history of end-stage renal disease on dialysis with the last 4 years, type 2 diabetes mellitus insulin-dependent, hypertension presented to the ED with a chief complaint of low blood pressure seen at hemodialysis. Patient has also been reporting of abdominal pain and black stool for the last 4-5 days. Patient reportedly had endoscopy about a month ago, but records could not be found in this hospital's EMR. Yesterday with the patient came to the hospital was reporting of abdominal pain which improved after a bowel movement in last bowel movement was yesterday. Past Medical History As per HPI Past Surgical History Right upper extremity AV fistula Family History: Alzheimer's disease G8 MOTHER FH: heart attack FH: pancreatic cancer G8 FATHER Hypertension G8 MOTHER Family History Noncontributory Social History Denies smoking, alcohol, drug use Allergies: Coded Allergies: NO KNOWN ALLERGIES (Unverified , 10/27/20) Home Meds Active Scripts Azithromycin (Azithromycin) 250 Mg Tab, 250 MG PO DAILY MDD 500 for 4 Days, #4 TAB 0 Refills 2 TABLETS ORALLY ON DAY ONE, THEN 1 TABLET ORALLY DAILY FOR 4 DAYS Prov:SALOMÓN LU 07/13/23 Pantoprazole Sodium Sesquihydr (Protonix) 40 Mg Tab, 40 MG PO DAILY, #30 TAB Prov:JORDI ARMAS MD 12/31/21 Reported Medications Sevelamer Hydrochloride (Sevelamer Hydrochloride) 800 Mg Tab, 3 TAB PO TIDWM, TAB 07/11/23 Prednisolone Acetate (Ophth) (Pred Forte) 1 % Sabi, 1 DROP LEFTEYE QID for S/P SURGERY 07/11/23 Carvedilol (Carvedilol) 6.25 Mg Tab, 6.25 MG PO BID, TAB 07/11/23 Dulaglutide (Trulicity) 1.5 Mg/0.5 Ml Inj, 1.5 MG SC QWEEKLY, INJ 03/16/23 Furosemide (Lasix) 80 Mg Tab, 80 MG PO DAILY, TAB 03/16/23 Lubiprostone (Amitiza) 24 Mcg Cap, 24 MCG PO BID, CAP 03/16/23 Sitagliptin Phosphate (Januvia) 50 Mg Tab, 25 MG PO DAILY, TAB 03/16/23 Ferric Citrate (Auryxia) 210 Mg Tab, 2 TAB PO QIDACHS, TAB 03/16/23 Clonidine Hydrochloride (Clonidine Hcl) 0.1 Mg Tab, 0.2 MG PO TID for 30 Days, MG 03/16/23 Nifedipine (Nifedipine Er) 90 Mg Tab, 1 TAB PO BID, #30 TAB 5 Refills 03/16/23 Doxazosin Mesylate (Doxazosin Mesylate) 4 Mg Tab, 4 MG PO HS, MG 12/25/21 Hydralazine Hcl (Hydralazine Hcl) 50 Mg Tab, 100 MG PO TID, MG 12/25/21 Current Medications Current Medications Medications (Trade) Dose Ordered Sig/Alfredo Route PRN Reason Start Time Stop Time Status Last Admin Clonidine HCl (Catapres Tablet) 0.1 mg BID PO 03/13/25 22:00 03/13/25 14:24 DC Nifedipine (Procardia Xl (Time-Release)) 90 mg DAILY PO 03/14/25 10:00 03/13/25 16:19 DC Carvedilol (Coreg Tablet) 6.25 mg BID PO 03/13/25 22:00 03/14/25 14:26 Clonidine HCl (Catapres Tablet) 0.2 mg BID PO 03/13/25 22:00 03/14/25 14:27 Nicardipine/ Sodium Chloride 200 ml @ 50 mls/hr Q4H IV 03/13/25 16:15 03/14/25 13:46 Nitroglycerin (Ntrostat Sublingual) 0.4 mg Q5MINP PRN SL FOR CHEST PAIN 03/13/25 16:15 Morphine Sulfate 2 mg Q30M PRN IV FOR CHEST PAIN 03/13/25 16:30 Pantoprazole Sodium (Protonix) 40 mg DAILY IV 03/14/25 10:00 03/14/25 14:26 Sucralfate (Carafate Susp) 1 gm BID@0600,2200 PO 03/14/25 22:00 Nifedipine (Procardia Xl (Time-Release)) 90 mg DAILY PO 03/15/25 10:00 UNV Review of Systems Patient seen and examined at bedside Does not report of any abdominal pain, nausea or vomiting at present Is able to tolerate diet well H&H is stable No bowel movement reported today Vital Signs Vital Signs Date Time Temp Pulse Resp B/P (MAP) Pulse Ox O2 Delivery O2 Flow Rate FiO2 03/14/25 14:30 75 13 153/68 (96) 88 03/14/25 07:30 98.0 98.0 03/14/25 07:30 Nasal Cannula* 2 28 Physical Exam Gen - no pallor, no scleral icterus Skin - Patients skin is warm and dry. HEENT - normocephalic, atraumatic, dry mucous membranes. Neck - supple, no lymphadenopathy Pulmonary - B/L equal breath sounds cardiovascular - regular S1,S2 heard GI - soft nontender abdomen. Bowel sounds normoactive. Neurological - Patient is alert and oriented x3 and is following commands Labs/Diagnostic Data Labs Test 03/14/25 08:53 03/13/25 06:27 03/12/25 19:53 Range/Units White Blood Count 7.4 # 4.4-10.8 10^3/uL Red Blood Count 3.79 L 4.5-5.90 10^6/uL Hemoglobin 12.8 L 13.5-17.5 g/dL Hematocrit 37.1 L 41.0-53.0 % Mean Corpuscular Volume 97.9 80.0-100.0 fL Mean Corpuscular Hemoglobin 33.8 H 28.0-32.0 pg Mean Corpuscular Hemoglobin Concent 34.5 32.0-36.0 g/dL Red Cell Distribution Width 14.0 11.8-14.3 % Platelet Count 174 140-450 10^3/uL Mean Platelet Volume 8.7 6.9-10.8 fL Neutrophils (%) (Auto) 86.1 H 37.0-80.0 % Lymphocytes (%) (Auto) 3.4 L 10.0-50.0 % Monocytes (%) (Auto) 7.8 0.0-12.0 % Eosinophils (%) (Auto) 1.7 0.0-7.0 % Basophils (%) (Auto) 1.0 0.0-2.0 % Neutrophils # (Auto) 6.3 1.6-8.6 10 ^3/uL Lymphocytes # (Auto) 0.3 L 0.4-5.4 10 ^3/uL Monocytes # (Auto) 0.6 0-1.3 10 ^3/uL Eosinophils # (Auto) 0.1 0-0.8 10 ^3/uL Basophils # (Auto) 0.1 0-0.2 10 ^3/uL Nucleated Red Blood Cells 0.2 % Sodium Level 136 136-145 mmol/L Potassium Level 5.4 H 3.5-5.1 mmol/L Chloride Level 97 L 98-107 mmol/L Carbon Dioxide Level 26 20-31 mmol/L Anion Gap 13 5-15 Blood Urea Nitrogen 31 H 9-23 mg/dL Creatinine 7.38 H 0.700-1.30 mg/dL Glomerular Filtration Rate Calc 8 >90 mL/min BUN/Creatinine Ratio 4.2 L 10.0-20.0 Serum Glucose 81 74-106 mg/dL Calcium Level 9.7 8.7-10.4 mg/dL Total Bilirubin 0.6 0.2-1.0 mg/dL Aspartate Amino Transferase (AST) < 8 L 13-40 U/L Alanine Aminotransferase (ALT) < 9 7-40 U/L Alkaline Phosphatase 77 46-116 U/L Total Protein 7.3 5.7-8.2 g/dL Albumin 4.0 3.2-4.8 g/dL B-Type Natriuretic Peptide 4275.71 0-100 pg/mL Prothrombin Time 12.3 H 9.3-11.8 sec Prothrombin Time INR 1.18 H 0.9-1.15 Activated Partial Thromboplast Time 26.5 24.5-34.5 SEC Assessment Acute abdominal pain Melena Mild anemia Possible acute gastritis/PUD ESRD on dialysis Plan - CT abdomen pelvis reviewed showed [id number] volume ascites - Protonix 40 mg IV daily - sucralfate 1 g p.o. b.i.d. - monitor H&H and keep hemoglobin above 7 - renal diet Plan discussed with Dr. Kaur Plan discussed with: Patient, Other (REID Bush) ZIGGY HUERTAS RESIDENT Mar 14, 2025 15:53
[2025-03-14] MEDS ORDERED: SUCR1SUS26 PO (16:11)
[2025-03-14 16:12] VITALS: BP 136/56; PULSE 59; RESP 14; O2SAT 98
--- NOTE | 2025-03-14 16:13 | DVHDS2 ---
Discharge Summary Date of Admission Mar 13, 2025 at 05:41 Date of Discharge: Mar 14, 2025 Labs/Diagnostic Data: Laboratory Results Test 03/14/25 08:53 03/13/25 06:27 03/12/25 19:53 White Blood Count 7.4 10^3/uL (4.4-10.8) Red Blood Count 3.79 10^6/uL (4.5-5.90) Hemoglobin 12.8 g/dL (13.5-17.5) Hematocrit 37.1 % (41.0-53.0) Mean Corpuscular Volume 97.9 fL (80.0-100.0) Mean Corpuscular Hemoglobin 33.8 pg (28.0-32.0) Mean Corpuscular Hemoglobin Concent 34.5 g/dL (32.0-36.0) Red Cell Distribution Width 14.0 % (11.8-14.3) Platelet Count 174 10^3/uL (140-450) Mean Platelet Volume 8.7 fL (6.9-10.8) Neutrophils (%) (Auto) 86.1 % (37.0-80.0) Lymphocytes (%) (Auto) 3.4 % (10.0-50.0) Monocytes (%) (Auto) 7.8 % (0.0-12.0) Eosinophils (%) (Auto) 1.7 % (0.0-7.0) Basophils (%) (Auto) 1.0 % (0.0-2.0) Neutrophils # (Auto) 6.3 10 ^3/uL (1.6-8.6) Lymphocytes # (Auto) 0.3 10 ^3/uL (0.4-5.4) Monocytes # (Auto) 0.6 10 ^3/uL (0-1.3) Eosinophils # (Auto) 0.1 10 ^3/uL (0-0.8) Basophils # (Auto) 0.1 10 ^3/uL (0-0.2) Nucleated Red Blood Cells 0.2 % Sodium Level 136 mmol/L (136-145) Potassium Level 5.4 mmol/L (3.5-5.1) Chloride Level 97 mmol/L (98-107) Carbon Dioxide Level 26 mmol/L (20-31) Anion Gap 13 (5-15) Blood Urea Nitrogen 31 mg/dL (9-23) Creatinine 7.38 mg/dL (0.700-1.30) Glomerular Filtration Rate Calc 8 mL/min (>90) BUN/Creatinine Ratio 4.2 (10.0-20.0) Serum Glucose 81 mg/dL (74-106) Calcium Level 9.7 mg/dL (8.7-10.4) Total Bilirubin 0.6 mg/dL (0.2-1.0) Aspartate Amino Transferase (AST) < 8 U/L (13-40) Alanine Aminotransferase (ALT) < 9 U/L (7-40) Alkaline Phosphatase 77 U/L (46-116) Total Protein 7.3 g/dL (5.7-8.2) Albumin 4.0 g/dL (3.2-4.8) B-Type Natriuretic Peptide 4275.71 pg/mL (0-100) Prothrombin Time 12.3 sec (9.3-11.8) Prothrombin Time INR 1.18 (0.9-1.15) Activated Partial Thromboplast Time 26.5 SEC (24.5-34.5) Other Laboratory Tests 03/14/25 08:53 Brief Hx & Hospital Course: 59-year-old male with a known history of end-stage renal disease on hemodialysis, initially presented to the hospital with blood in stool/black stool, patient has had hemodialysis yesterday and then he was found to have low blood pressure at home eventually came to the ER. Patient's hemoglobin/hematocrit remained stable, denies any blood in stool. GI evaluated the patient and recommended outpatient follow up. Patient's hypertensive urgency has been resolved patient is currently being discharged under stable condition. Patient did get hemodialysis during the hospital stay. Condition at Discharge: Stable Final Diagnosis/Problems List 59-year-old male with a known history of end-stage renal disease on hemodialysis, initially presented to the hospital with blood in stool/black stool, patient has had hemodialysis yesterday and then he was found to have low blood pressure at home eventually came to the ER. 1. Hypertensive urgency 2. Blood in stool rule out upper GI/lower GI bleed 3. End-stage renal disease on hemodialysis 4. Abdominal pain unspecified Discharge Disposition: Home SNF Discharge Will this Physician continue t: No Discharge Instruct/Medications Diet: Cardiac 2g Na,low cholest Activity: No Restrictions, As Tolerated Follow Up/Referral: Follow up with the PCP in 1-2 weeks Follow up with the GI as an outpatient in 1-2 weeks Medications: Resume home medications. New Medications: Sucralfate (Carafate Susp) 1 Gm/10 Ml Ss 1 GM PO BID@0600,2200, #600 ML Continued Medications: Carvedilol (Carvedilol) 6.25 Mg Tab 6.25 MG PO BID, TAB Clonidine Hydrochloride (Clonidine Hcl) 0.1 Mg Tab 0.2 MG PO TID for 30 Days, MG Doxazosin Mesylate (Doxazosin Mesylate) 4 Mg Tab 4 MG PO HS, MG Dulaglutide (Trulicity) 1.5 Mg/0.5 Ml Inj 1.5 MG SC QWEEKLY, INJ Ferric Citrate (Auryxia) 210 Mg Tab 2 TAB PO QIDACHS, TAB Furosemide (Lasix) 80 Mg Tab 80 MG PO DAILY, TAB Hydralazine Hcl (Hydralazine Hcl) 50 Mg Tab 100 MG PO TID, MG Lubiprostone (Amitiza) 24 Mcg Cap 24 MCG PO BID, CAP Nifedipine (Nifedipine Er) 90 Mg Tab 1 TAB PO BID, #30 TAB 5 Refills Pantoprazole Sodium Sesquihydr (Protonix) 40 Mg Tab 40 MG PO DAILY, #30 TAB Prednisolone Acetate (Ophth) (Pred Forte) 1 % Sabi 1 DROP LEFTEYE QID for S/P SURGERY Sevelamer Hydrochloride (Sevelamer Hydrochloride) 800 Mg Tab 3 TAB PO TIDWM, TAB Sitagliptin Phosphate (Januvia) 50 Mg Tab 25 MG PO DAILY, TAB Discontinued Medications: Azithromycin (Azithromycin) 250 Mg Tab 250 MG PO DAILY MDD 500 for 4 Days, #4 TAB 0 Refills 2 TABLETS ORALLY ON DAY ONE, THEN 1 TABLET ORALLY DAILY FOR 4 DAYS Scheduled Azithromycin (Azithromycin), 250 MG PO DAILY Carvedilol (Carvedilol), 6.25 MG PO BID, (Reported) Clonidine Hydrochloride (Clonidine Hcl), 0.2 MG PO TID, (Reported) Doxazosin Mesylate (Doxazosin Mesylate), 4 MG PO HS, (Reported) Dulaglutide (Trulicity), 1.5 MG SC QWEEKLY, (Reported) Ferric Citrate (Auryxia), 2 TAB PO QIDACHS, (Reported) Furosemide (Lasix), 80 MG PO DAILY, (Reported) Hydralazine Hcl (Hydralazine Hcl), 100 MG PO TID, (Reported) Lubiprostone (Amitiza), 24 MCG PO BID, (Reported) Nifedipine (Nifedipine Er), 1 TAB PO BID, (Reported) Pantoprazole Sodium Sesquihydr (Protonix), 40 MG PO DAILY Prednisolone Acetate (Ophth) (Pred Forte), 1 DROP LEFTEYE QID, (Reported) Sevelamer Hydrochloride (Sevelamer Hydrochloride), 3 TAB PO TIDWM, (Reported) Sitagliptin Phosphate (Januvia), 25 MG PO DAILY, (Reported) Sucralfate (Carafate Susp), 1 GM PO BID@0600,2200 Discharge Statement: "Patient was advised to return to the ER or call 911 if any headaches, dizziness, shortness of breath, chest pain, abdominal pain, bleeding, fevers, or worsening of medical condition. Patient was counseled about treatment plan, medications, possible side effects, patientverbalized understanding. All questions were answered to the best of my ability. This discharge took greater then 30 minutes in planning, reviewing documentation, counseling the patient, and discussing with other team members." ASSESSMENT ASSESSMENT Assessment 59-year-old male with a known history of end-stage renal disease on hemodialysis, initially presented to the hospital with blood in stool/black stool, patient has had hemodialysis yesterday and then he was found to have low blood pressure at home eventually came to the ER. 1. Hypertensive urgency 2. Blood in stool rule out upper GI/lower GI bleed 3. End-stage renal disease on hemodialysis 4. Abdominal pain unspecified Date of Service: Mar 14, 2025 Billing Provider: CAMILLE JOSEPH MD Common Visit Codes: 32638-ZIJ/OBS DISCH DAY >30min CAMILLE JOSEPH MD Mar 14, 2025 16:13
[2025-03-14] MEDS ORDERED: SUCRALFATE 1 GM/10 ML ORAL SUSP PO SCH (22:00)
== END 2025-03-14 19:05 | disposition home or self-care (01) | DRG 377 ==
LOC: EDBD 19:22 → ER 19:22 → EDUNIT# 19:22 → OVERFLOW 03-13 05:41
PROVIDERS: ADMIT Internal Medicine; ATTEND Internal Medicine
PROC: 5A1D70Z Performance of Urinary Filtration, Intermittent, Less than 6 Hours Per Day (ICD-10-PCS; principal; 2025-03-14)
DX: K29.01 Acute gastritis with bleeding (principal); N18.6 End stage renal disease; I12.0 Hypertensive chronic kidney disease with stage 5 chronic kidney disease or end stage renal disease; R18.8 Other ascites; Z99.2 Dependence on renal dialysis; E11.22 Type 2 diabetes mellitus with diabetic chronic kidney disease; D64.9 Anemia, unspecified; I16.0 Hypertensive urgency; Z79.4 Long term (current) use of insulin; Z82.0 Family history of epilepsy and other diseases of the nervous system; Z82.49 Family history of ischemic heart disease and other diseases of the circulatory system; Z80.0 Family history of malignant neoplasm of digestive organs
CPT/HCPCS: 36415; 74176; 80048; 80053; 83880; 85025; 85610; 85730; 86850; 86900; 86901; 90935; 99291; 99292; G0378; J2405; J2470; J3490